=== PATIENT | female | born 1985 | race African-American/Black ===

== ENCOUNTER 2019-06-01 10:19 | Inpatient (IN) | payer SELFPAY ==
[~2019-06-01] VITALS: Ht 154.9 cm; Wt 57.6 kg
--- NOTE | 2019-06-01 10:25 | NUR ---
ED Nurse Note: Patient came via ambulance into ER with a c/o right hip pain x yesterday. Patient states that she fell when playing basketball yesterday and she fell again this morning. Pt stated that she went to [place] yesterday and said she had an xray done. Patient is AOx4, on room air with no signs of respiratory or cardiac distress noted. Pt states a pain score of 10/10. Leg color even and distributed. No bone protrusion noted. palpation of extremity pulses strong and even bilaterally.
--- NOTE | 2019-06-01 10:45 | NUR ---
ED Nurse Note: ERMD at bedside. placed patient in gown and on cardiac monitors.
[2019-06-01 10:56] VITALS: BP 108/78
[2019-06-01 11:35] LABS: APPEARANCE,URINE SLIGHTLY CLOUDY; BILIRUBIN, URINE NEGATIVE (NEGATIVE); COLOR,URINE PALE YELLOW; GLUCOSE, URINE (UA) NEGATIVE (NEGATIVE); KETONES,URINE NEGATIVE (NEGATIVE); LEUKOCYTE ESTERASE ,URINE 3+ (NEGATIVE); NITRITE,URINE NEGATIVE (NEGATIVE); PH,URINE 6 (4.5-8.0); PROTEIN,URINE NEGATIVE (NEGATIVE); UROBILINOGEN,URINE NORMAL MG/DL (0.0-1.0)
--- NOTE | 2019-06-01 11:50 | NUR ---
ED Nurse Note: xray done at bedside
--- NOTE | 2019-06-01 12:15 | NUR ---
ED Nurse Note: patient requested food, Dr. Uribe notified, and received order to hold on until xray is resulted.
[2019-06-01] MEDS ORDERED: Morphine Sulfate 2mg/ml Inj(IV/IM USE ONLY) IVP ONE (12:30)
--- NOTE | 2019-06-01 12:35 | Diagnostic Imaging Report ---
EXAM: XR Bilateral Hips With Pelvis, 4 or more Views CLINICAL HISTORY: PAIN TECHNIQUE: 2 views of the right hip, 2 views of the left hip, and frontal view of the pelvis. COMPARISON: No relevant prior studies available. FINDINGS: Bones/joints: Mildly displaced right femoral neck fracture with mild angulation. No other fracture or dislocation identified. Pelvic and obturator rings appear intact. SI joints and symphysis pubis appear unremarkable. Soft tissues: Unremarkable. IMPRESSION: Mildly displaced right femoral neck fracture with mild angulation.
--- NOTE | 2019-06-01 13:34 | Emergency Room Report ---
History of Present Illness General Chief Complaint: Pain Source: Patient Present Illness HPI 34-year-old female status post fall 2 to 3 days ago. Patient was admitted to [place] last night for right hip fracture. She left AMA because she wanted her sister to be with her. Patient states she has been unable to ambulate all morning.Patient reports her right hip pain has been going on for 1 month in duration. Patient has no other complaints. Social history significant for every day smoking Patient has no past medical history and does not take any medications. Allergies: Coded Allergies: No Known Allergies (Unverified , 06/01/19) Patient History Last Menstrual Period: Unknown Now: No Nursing Documentation-[facility] Past Medical History: No Stated History Review of Systems Constitutional: Denies: chills, fever Respiratory: Denies: cough, shortness of breath Cardiovascular: Denies: chest pain, palpitations Gastrointestinal: Denies: diarrhea, vomiting Genitourinary: Denies: hematuria, pain Musculoskeletal: Reports: joint pain; Denies: joint swelling Skin: Denies: rash, lesions Neurological: Denies: headache, dizziness Physical Exam Vital Signs Date Time Temp Pulse Resp B/P (MAP) Pulse Ox O2 Delivery O2 Flow Rate FiO2 06/01/19 09:56 98.4 92 18 132/80 (97) 100 Room Air Sp02 EP Interpretation: reviewed General Appearance: well appearing, no apparent distress, non-toxic Head: normocephalic, atraumatic Eyes: bilateral eye normal inspection ENT: hearing grossly normal, EOM grossly intact, moist mucus membranes Neck: supple Respiratory: lungs clear, normal breath sounds, no respiratory distress, speaking full sentences Cardiovascular #1: regular rate, rhythm, normal capillary refill Cardiovascular #2: 2+ radial (R), 2+ radial (L), 2+ femoral (R), 2+ femoral (L) , 2+ dorsalis pedis (R) Gastrointestinal: soft, no mass, no organomegaly, non-distended Rectal: deferred Musculoskeletal: no lower extremity edema, other - Limited range of motion of right hip due to severe pain. No signs of deformity or skin changes. Neurologic: grossly normal Psychiatric: mood/affect normal Skin: warm/dry, normal turgor Medical Decision Making Diagnostic Impression: Primary Impression: Femoral fracture Additional Impression: Hip fracture ER Course Patient left AMA from hospital last night for right hip fracture. Reporting severe pain to right hip today. Will obtain x-rays and review. X-rays found to have right femoral neck fracture. Patient will likely need to be admitted for operative repair. Ordered preop labs and pain medication. 1333-patient's care discussed with Dr. Tucker who agreed to admission and likely operative repair. Recommended obtaining a CT hip. 1415 Patient to be admitted to medical team under Dr. Cortés Laboratory Tests Test 06/01/19 11:05 06/01/19 12:50 Urine Color Pale yellow Urine Appearance Slightly cloudy Urine pH 6 (4.5-8.0) Urine Specific [place] 1.015 (1.005-1.035) Urine Protein Negative (NEGATIVE) Urine Glucose (UA) Negative (NEGATIVE) Urine Ketones Negative (NEGATIVE) Urine Blood 1+ (NEGATIVE) H Urine Nitrite Negative (NEGATIVE) Urine Bilirubin Negative (NEGATIVE) Urine Urobilinogen Normal MG/DL (0.0-1.0) Urine Leukocyte Esterase 3+ (NEGATIVE) H Urine RBC 2-4 /HPF (0 - 2) H Urine WBC 20-30 /HPF (0 - 2) H Urine Squamous Epithelial Cells Many /LPF (NONE/OCC) H Urine Bacteria Moderate /HPF (NONE) H Urine HCG, Qualitative Negative (NEGATIVE) Urine Opiates Screen Negative (NEGATIVE) Urine Barbiturates Screen Negative (NEGATIVE) Phencyclidine (PCP) Screen Negative (NEGATIVE) Urine Amphetamines Screen Negative (NEGATIVE) Urine Benzodiazepines Screen Negative (NEGATIVE) Urine Cocaine Screen Negative (NEGATIVE) Urine Marijuana (THC) Screen Positive (NEGATIVE) H White Blood Count 9.5 K/UL (4.8-10.8) Red Blood Count 3.56 M/UL (4.20-5.40) L Hemoglobin 10.1 G/DL (12.0-16.0) L Hematocrit 31.1 % (37.0-47.0) L Mean Corpuscular Volume 87 FL (80-99) Mean Corpuscular Hemoglobin 28.3 PG (27.0-31.0) Mean Corpuscular Hemoglobin Concent 32.4 G/DL (32.0-36.0) Red Cell Distribution Width 13.2 % (11.6-14.8) Platelet Count 404 K/UL (150-450) Mean Platelet Volume 5.1 FL (6.5-10.1) L Neutrophils (%) (Auto) 59.2 % (45.0-75.0) Lymphocytes (%) (Auto) 27.1 % (20.0-45.0) Monocytes (%) (Auto) 5.0 % (1.0-10.0) Eosinophils (%) (Auto) 6.6 % (0.0-3.0) H Basophils (%) (Auto) 2.1 % (0.0-2.0) H Sodium Level 139 MMOL/L (136-145) Potassium Level 3.9 MMOL/L (3.5-5.1) Chloride Level 105 MMOL/L (98-107) Carbon Dioxide Level 31 MMOL/L (21-32) Anion Gap 3 mmol/L (5-15) L Blood Urea Nitrogen 12 mg/dL (7-18) Creatinine 0.6 MG/DL (0.55-1.30) Estimate Glomerular Filtration Rate > 60 mL/min (>60) Glucose Level 77 MG/DL (74-106) Calcium Level 8.9 MG/DL (8.5-10.1) Total Bilirubin 0.3 MG/DL (0.2-1.0) Aspartate Amino Transferase (AST) 28 U/L (15-37) Alanine Aminotransferase (ALT) 26 U/L (12-78) Alkaline Phosphatase 52 U/L (46-116) Total Protein 6.0 G/DL (6.4-8.2) L Albumin 2.9 G/DL (3.4-5.0) L Globulin 3.1 g/dL Albumin/Globulin Ratio 0.9 (1.0-2.7) L Lab Results Impression Mild anemia noted on labs UDS positive for marijuana EKG Diagnostic Results EKG Time: 12:34 EP Interpretation: Normal sinus rhythm rate of 80 ST Segments: no acute changes Other X-Ray Diagnostic Results Other X-Ray Diagnostic Results : X-Ray ordered: Right HIP Indication: Pain Impression: Other - femoral neck fracture with mild angulation Electronically Signed by: Jojo Last Vital Signs Date Time Temp Pulse Resp B/P (MAP) Pulse Ox O2 Delivery O2 Flow Rate FiO2 06/01/19 10:56 98.4 84 23 108/78 100 Room Air Disposition: ADMITTED INPATIENT Condition: Serious Referrals: NOT CHOSEN IPA/,REFERRING (PCP) Sanchez Uribe M.D. Jun 01, 2019 13:34
[2019-06-01 13:45] LABS: BASOPHILS % (AUTO) 2.1 % (0.0-2.0); EOSINOPHILS % (AUTO) 6.6 % (0.0-3.0); HEMATOCRIT 31.1 % (37.0-47.0); HEMOGLOBIN 10.1 G/DL (12.0-16.0); LYMPHOCYTES % (AUTO) 27.1 % (20.0-45.0); MEAN CORPUSCULAR VOLUME 87 FL (80-99); NEUTROPHILS % (AUTO) 59.2 % (45.0-75.0); PLATELET COUNT 404 K/UL (150-450); RED BLOOD COUNT 3.56 M/UL (4.20-5.40); RED CELL DISTRIBUTION WIDTH 13.2 % (11.6-14.8); WHITE BLOOD COUNT 9.5 K/UL (4.8-10.8)
--- NOTE | 2019-06-01 13:46 | NUR ---
ED Nurse Note: patient taken to [facility] via [place]
--- NOTE | 2019-06-01 14:06 | NUR ---
ED Nurse Note: patient taken back from CT scan. belongings list done.
[2019-06-01 14:11] LABS: ANION GAP 3 mmol/L (5-15); BLOOD UREA NITROGEN 12 mg/dL (7-18); CALCIUM 8.9 MG/DL (8.5-10.1); CARBON DIOXIDE 31 MMOL/L (21-32); CHLORIDE 105 MMOL/L (98-107); CREATININE 0.6 MG/DL (0.55-1.30); POTASSIUM 3.9 MMOL/L (3.5-5.1); SODIUM 139 MMOL/L (136-145)
[2019-06-01] MEDS ORDERED: NKM (14:15)
[2019-06-01 14:16] LABS: ALANINE AMINOTRANSFERASE 26 U/L (12-78); ALBUMIN 2.9 G/DL (3.4-5.0); ALBUMIN/GLOBULIN RATIO 0.9 (1.0-2.7); ALKALINE PHOSPHATASE 52 U/L (46-116); ASPARTATE AMINO TRANSFERASE 28 U/L (15-37); BILIRUBIN,TOTAL 0.3 MG/DL (0.2-1.0)
--- NOTE | 2019-06-01 14:17 | NUR ---
ED Nurse Note: Called nurse JOANA Pompa for report of transfer for continuity of care.
--- NOTE | 2019-06-01 14:30 | NUR ---
ED Nurse Note: Pt transfered to Med-Surg. Patient aox4, on room air, and stable vital signs. Patient pain score is 7/10. Endorsed to JOANA Pompa for continuity of care. Belongings list given to JOANA Pompa and reviewed with Peña and patient.
--- NOTE | 2019-06-01 14:45 | NUR ---
NURSE NOTES: Patient was admitted from ED via gurney. AAO x 4. Room air. c/o of pain on her R hip. IV on RAC 20g intact and patent, with saline lock. Skin intact. Orientation on the unit given. Paged for admission orders and awaiting. Belongings were accounted. Side rails x 2. Bed in the lowest and locked. Call light within reach. Will continue to monitor
--- NOTE | 2019-06-01 15:10 | Diagnostic Imaging Report ---
EXAM: CT Right Lower Extremity Without Intravenous Contrast, Hip CLINICAL HISTORY: FALL TECHNIQUE: Axial computed tomography images of the right hip without intravenous contrast. Sagittal and coronal reformatted images were created and reviewed. CTDI is 24.20 mGy and DLP is 831.10 mGy-cm. One or more of the following dose reduction techniques were used: automated exposure control, adjustment of the mA and/or kV according to patient size, use of iterative reconstruction technique. COMPARISON: X-rays of the hips and pelvis dated 06/01/19 FINDINGS: Bones/joints: Mildly impacted transcervical right hip fracture. No other fracture or dislocation seen. The pelvic and obturator rings are intact. SI joints and symphysis pubis appear within normal limits. Soft tissues: Unremarkable. IMPRESSION: Mildly impacted transcervical right hip fracture.
[2019-06-01] MEDS ORDERED: D5 1/2NS 1,000 ML IV SCH (15:45)
[2019-06-01 16:00] VITALS: BP 113/55
[2019-06-01] MEDS: Morphine Sulfate 2mg/ml Inj(IV/IM USE ONLY) IVP PRN ×2 (16:58→21:22)
--- NOTE | 2019-06-01 17:53 | Cardiology Progress Note ---
Assessment/Plan Assessment/Plan The patient is seen and examined, full consult note is dictated. Objective Last 24 Hour Vital Signs Date Time Temp Pulse Resp B/P (MAP) Pulse Ox O2 Delivery O2 Flow Rate FiO2 06/01/19 17:28 98.1 06/01/19 16:00 98.1 90 20 113/55 (74) 100 06/01/19 14:58 Room Air 06/01/19 14:30 97.7 86 20 102/51 100 Room Air 06/01/19 10:56 98.4 84 23 108/78 100 Room Air 06/01/19 09:56 98.4 92 18 132/80 (97) 100 Room Air Laboratory Tests Test 06/01/19 11:05 06/01/19 12:50 Urine Color Pale yellow Urine Appearance Slightly cloudy Urine pH 6 (4.5-8.0) Urine Specific [place] 1.015 (1.005-1.035) Urine Protein Negative (NEGATIVE) Urine Glucose (UA) Negative (NEGATIVE) Urine Ketones Negative (NEGATIVE) Urine Blood 1+ (NEGATIVE) H Urine Nitrite Negative (NEGATIVE) Urine Bilirubin Negative (NEGATIVE) Urine Urobilinogen Normal MG/DL (0.0-1.0) Urine Leukocyte Esterase 3+ (NEGATIVE) H Urine RBC 2-4 /HPF (0 - 2) H Urine WBC 20-30 /HPF (0 - 2) H Urine Squamous Epithelial Cells Many /LPF (NONE/OCC) H Urine Bacteria Moderate /HPF (NONE) H Urine HCG, Qualitative Negative (NEGATIVE) Urine Opiates Screen Negative (NEGATIVE) Urine Barbiturates Screen Negative (NEGATIVE) Phencyclidine (PCP) Screen Negative (NEGATIVE) Urine Amphetamines Screen Negative (NEGATIVE) Urine Benzodiazepines Screen Negative (NEGATIVE) Urine Cocaine Screen Negative (NEGATIVE) Urine Marijuana (THC) Screen Positive (NEGATIVE) H White Blood Count 9.5 K/UL (4.8-10.8) Red Blood Count 3.56 M/UL (4.20-5.40) L Hemoglobin 10.1 G/DL (12.0-16.0) L Hematocrit 31.1 % (37.0-47.0) L Mean Corpuscular Volume 87 FL (80-99) Mean Corpuscular Hemoglobin 28.3 PG (27.0-31.0) Mean Corpuscular Hemoglobin Concent 32.4 G/DL (32.0-36.0) Red Cell Distribution Width 13.2 % (11.6-14.8) Platelet Count 404 K/UL (150-450) Mean Platelet Volume 5.1 FL (6.5-10.1) L Neutrophils (%) (Auto) 59.2 % (45.0-75.0) Lymphocytes (%) (Auto) 27.1 % (20.0-45.0) Monocytes (%) (Auto) 5.0 % (1.0-10.0) Eosinophils (%) (Auto) 6.6 % (0.0-3.0) H Basophils (%) (Auto) 2.1 % (0.0-2.0) H Sodium Level 139 MMOL/L (136-145) Potassium Level 3.9 MMOL/L (3.5-5.1) Chloride Level 105 MMOL/L (98-107) Carbon Dioxide Level 31 MMOL/L (21-32) Anion Gap 3 mmol/L (5-15) L Blood Urea Nitrogen 12 mg/dL (7-18) Creatinine 0.6 MG/DL (0.55-1.30) Estimat Glomerular Filtration Rate > 60 mL/min (>60) Glucose Level 77 MG/DL (74-106) Calcium Level 8.9 MG/DL (8.5-10.1) Total Bilirubin 0.3 MG/DL (0.2-1.0) Aspartate Amino Transf (AST/SGOT) 28 U/L (15-37) Alanine Aminotransferase (ALT/SGPT) 26 U/L (12-78) Alkaline Phosphatase 52 U/L (46-116) Total Protein 6.0 G/DL (6.4-8.2) L Albumin 2.9 G/DL (3.4-5.0) L Globulin 3.1 g/dL Albumin/Globulin Ratio 0.9 (1.0-2.7) L Orlando Dutton MD Jun 01, 2019 17:53
--- NOTE | 2019-06-01 18:50 | NUR ---
NURSE NOTES: Paged dr. Mccullough for orders, awaiting for return call
--- NOTE | 2019-06-01 19:15 | NUR ---
NURSE NOTES: Pt in bed asleep, call light within reach, able to make needs known, will continue to monitor, waiting for orders from Dr. Marquez.
--- NOTE | 2019-06-01 19:16 | NUR ---
HAND-OFF: Report given to JOANA Bajwa.
--- NOTE | 2019-06-01 20:00 | NUR ---
NURSE NOTES: Left message for Dr. Marquez for orders, waiting direct support professional caregiver back.
--- NOTE | 2019-06-01 23:30 | NUR ---
HAND-OFF: Report given to JOANA Key.
--- NOTE | 2019-06-02 01:30 | Consultation ---
DATE OF CONSULTATION: 06/01/2019 CARDIOLOGY CONSULTATION CONSULTING PHYSICIAN: Orlando Dutton M.D. REFERRING PHYSICIAN: Wilver Cortés D.O. REASON FOR CONSULTATION: Preoperative cardiac assessment for noncardiac surgery. HISTORY OF PRESENT ILLNESS: The patient is a very unfortunate 34-year-old female, who presents to the hospital status post fall that occurred about two or three days ago. Initially, she was admitted to [place], however she left AMA from the hospital. She states that she has been unable to ambulate due to right hip pain. At the time of arrival to this hospital, she did not have any chest pain, any shortness of breath. Prior to this event, she was physically active and did not have any cardiovascular symptoms with her usual activities. Her vital signs at the time of arrival to this hospital includes blood pressure 130/80 mmHg and pulse of 92. PAST MEDICAL HISTORY: None. MEDICATIONS: None. REVIEW OF SYSTEMS: A 12-system review done essentially negative except what was mentioned in the history of present illness including right hip pain and inability to bear weight. PAST SURGICAL HISTORY: None. ALLERGIES: No known drug allergies. FAMILY HISTORY: No premature coronary artery disease in the first-degree relatives. PHYSICAL EXAMINATION: VITAL SIGNS: Blood pressure is 132/80, pulse of 92, respirations 18, temperature 98.4 degree Fahrenheit, and O2 saturation 100% on room air. GENERAL: This is a very unfortunate 34-year-old lady. Alert and awake. No apparent respiratory distress. HEENT: Atraumatic and normocephalic. Anicteric. Pupils are equal, round, and reactive to light and accommodation. Extraocular muscles intact. NECK: JVP less than 5 cm. No carotid bruits. Carotid upstrokes 2+ bilaterally. CARDIOVASCULAR: Normal S1, S2. Regular rate and rhythm. No murmurs, gallops, or rubs. LUNGS: Clear to auscultation bilaterally. ABDOMEN: Soft, nontender, and nondistended. No hepatosplenomegaly. Positive bowel sounds. EXTREMITIES: No evidence of edema, clubbing, or cyanosis. LABORATORY FINDINGS: WBC 9.5 hemoglobin 10.1, hematocrit 31.1, and platelet count is 404. Chemistry, sodium 139, potassium 3.9, chloride 105, bicarbonate 31, BUN 12, creatinine 0.6, glucose 77, and calcium is 8.9. Urine tox screen showed positive marijuana. ASSESSMENT AND PLAN: The patient is a very unfortunate 34-year-old female, who was seen in Cardiology consultation for preoperative cardiac assessment as she is undergoing right hip ORIF. The patient does not have any prior history of coronary artery disease, congestive heart failure, or cardiac arrhythmias. She is asymptomatic with her usual physical activities medications. She is the intermediate risk above orthopedic surgery with risk of coronary artery disease estimated to be less than 1%. I would like to thank, Dr. Cortés, for the courtesy of this consultation. Orlando Dutton M.D. DR: GREGOR JOB#: [id number] CC:
[2019-06-02] MEDS: Morphine Sulfate 2mg/ml Inj(IV/IM USE ONLY) IVP PRN ×2 (02:04→06:01)
[2019-06-02 04:00] VITALS: BP 111/71
--- NOTE | 2019-06-02 07:00 | NUR ---
NURSE NOTES: PATIENT ELOPED FROM HOSPITAL. WENT DOWN TO Addendum: 06/02/19 at 0819 by Yesi Ballesteros RN NURSE NOTES: PATIENT ELOPED FROM HOSPITAL. PATIENT IS VERBALLY ABUSIVE, INSISTED TO LEAVE UNIT TO SMOKE CIGARRETTES AND REFUSED TO HAVE STAFF FOLLOW HER. PATIENT REFUSED TO COME BACK UP TO ROOM. INFORMED NURSE BRANDING MACHINE TENDER LALO WARNER. PATIENT THEN LEFT WITH STRANGER [facility] WAS INFORMED, DEIDRE WAS CALLED. [employer] ARRIVED AT FACILITY. PROVIDED [employer] OFFICER JODY WITH PATIENT'S DESCRIPTION, PATIENT'S HOME ADDRESS, TIME THAT PATIENT ELOPED FROM HOSPITAL. AND DR. SPARKS WERE INFORMED.
[2019-06-02 07:32] LABS: EOSINOPHILS % (AUTO) 6.9 % (0.0-3.0); HEMATOCRIT 38.2 % (37.0-47.0); HEMOGLOBIN 12.4 G/DL (12.0-16.0); LYMPHOCYTES % (AUTO) 23.8 % (20.0-45.0); MEAN CORPUSCULAR VOLUME 89 FL (80-99); MONOCYTES % (AUTO) 5.9 % (1.0-10.0); NEUTROPHILS % (AUTO) 61.4 % (45.0-75.0); PLATELET COUNT 460 K/UL (150-450); RED BLOOD COUNT 4.32 M/UL (4.20-5.40); RED CELL DISTRIBUTION WIDTH 13.4 % (11.6-14.8); WHITE BLOOD COUNT 12.3 K/UL (4.8-10.8)
[2019-06-02 07:47] LABS: ANION GAP 9 mmol/L (5-15); BLOOD UREA NITROGEN 10 mg/dL (7-18); CARBON DIOXIDE 27 MMOL/L (21-32); CHLORIDE 105 MMOL/L (98-107); CREATININE 0.7 MG/DL (0.55-1.30); POTASSIUM 3.7 MMOL/L (3.5-5.1); SODIUM 140 MMOL/L (136-145)
[2019-06-02 08:05] LABS: INR 0.9 (0.9-1.1)
[2019-06-02] MEDS ORDERED: NKM (11:57)
--- NOTE | 2019-06-03 14:24 | Discharge Summary ---
Discharge Summary Discharge Summary _ DATE OF ADMISSION: 06/01/2019 DATE OF DISCHARGE: 06/02/2019 Patient eloped REASON FOR ADMISSION: 34 years old female, with no significant past medical history, status post fall few days ago, initially presented to [facility] for right hip fracture. Patient left AGAINST MEDICAL ADVICE, because she wanted her sister to be with her. Patient was unable to ambulate and presented to ED with complaint of the right hip pain, Upon evaluation vital signs were stable. Laboratory work-up revealed no leukocytosis, hemoglobin 10.1, hematocrit 31.1. Platelet count 404. Stable electrolytes and renal parameters. Glucose 77. Stable LFT. EKG revealed sinus rhythm, no acute ischemic changes. Urine toxicology screen was positive for marijuana. Urinalysis revealed +3 leukocyte esterase, pyuria and moderate bacteria. Pelvic x-ray revealed mildly displaced right femoral neck fracture with mild angulation. CT scan of the right hip revealed mildly impacted transcervical right hip fracture. Patient admitted to medical surgical floor for further management CONSULTANTS: work order sorting clerk Dr. Dutton HOSPITAL COURSE: Patient admitted to medical surgical floor. Pain management was addressed. Orthopedic surgery and cardiology consults were requested. Fusing Machine Operator consulted for preoperative cardiac assessment for noncardiac surgery. Patient had no family history as well as no prior history of coronary artery disease, congestive heart failure , cardiac arrhythmia. She is asymptomatic with her usual physical activities. Patient appeared to be at intermediate risk of further orthopedic surgery with risk of coronary artery disease estimated to be less than 1%. Surgery consult was pending. Patient eloped from the hospital . She went to smoke and refused to come back to the room. FINAL DIAGNOSES: Right hip fracture I have been assigned to dictate discharge summary for this account. I was not involved in the patient's management. Kamini Galo NP Jun 03, 2019 14:24
--- NOTE | 2019-06-06 12:52 | Cardiology Report ---
APPROVED REPORT EKG Measurement Heart [id number] TN [id number] Normal sinus rhythm Normal ECG
== END 2019-06-02 07:00 | disposition left against medical advice (07) | DRG 536 ==
LOC: EDBD 10:19 → EMR 12:27 → EDBEDREQ 13:44 → 4E 13:52
DX: S72.031A Displaced midcervical fracture of right femur, initial encounter for closed fracture (principal); W01.0XXA Fall on same level from slipping, tripping and stumbling without subsequent striking against object, initial encounter; Y93.9 Activity, unspecified; Y92.9 Unspecified place or not applicable; Y99.8 Other external cause status; F17.210 Nicotine dependence, cigarettes, uncomplicated; Z53.29 Procedure and treatment not carried out because of patient's decision for other reasons
CPT/HCPCS: 36415; 73521; 80048; 80053; 80307; 81003; 81025; 85025; 85610; 85730; 86850; 86900; 86901; 87086; 93005; 96361; 96374; 99285; J7030

== ENCOUNTER 2019-06-02 10:35 | Inpatient (IN) | payer SELFPAY ==
[~2019-06-02] VITALS: Ht 154.9 cm; Wt 56.7 kg
[~2019-06-02 10:35] MED LIST: NKM
[2019-06-02 10:50] VITALS: BP 97/65
--- NOTE | 2019-06-02 10:50 | NUR ---
ED Nurse Note: Patient arrived to ER via wheelchair with [employer]. Patient is here for pain in her right hip. Patient complains of a pain score of 10/10. Patient aaox4, on room air and vital signs are stable. No signs of respiratory distress noted. Patient's leg color is evenly distributed, and Pulses are palpable bilateraly. Blood specimens sent to the lab. Patient states she left the hospital this morning.
[2019-06-02] MEDS ORDERED: NKM (11:57)
--- NOTE | 2019-06-02 12:29 | Emergency Room Report ---
History of Present Illness General Chief Complaint: Pain Source: Patient, Medical Record Present Illness HPI 34-year-old female who left AGAINST MEDICAL ADVICE return to emergency room with continued hip pain status post fall several days ago. Patient was admitted to hospital pending operative repair of femoral neck fracture. Patient has no new complaints. Patient states she left because they were not taking care of her and she was covered in urine in her bed. Allergies: Coded Allergies: No Known Allergies (Unverified , 06/01/19) Patient History Last Menstrual Period: 05/21/19 Now: No Nursing Documentation-[facility] Past Medical History: No History, Except For Hx Cardiac Problems: No Hx Cancer: No Hx Gastrointestinal Problems: No Hx Neurological Problems: No Review of Systems Constitutional: Denies: chills, fever Respiratory: Denies: cough, shortness of breath Cardiovascular: Denies: chest pain, palpitations Gastrointestinal: Denies: diarrhea, vomiting Genitourinary: Denies: hematuria, pain Musculoskeletal: Reports: joint pain; Denies: joint swelling Skin: Denies: rash, lesions Neurological: Denies: headache, dizziness Physical Exam Vital Signs Date Time Temp Pulse Resp B/P (MAP) Pulse Ox O2 Delivery O2 Flow Rate FiO2 06/02/19 10:44 99.1 100 19 97/65 (76) 100 Room Air Sp02 EP Interpretation: reviewed General Appearance: well appearing, no apparent distress, non-toxic Head: normocephalic, atraumatic Eyes: bilateral eye normal inspection ENT: hearing grossly normal, EOM grossly intact, moist mucus membranes Neck: supple Respiratory: lungs clear, normal breath sounds, no respiratory distress, speaking full sentences Cardiovascular #1: regular rate, rhythm, normal capillary refill Cardiovascular #2: 2+ radial (R), 2+ radial (L), 2+ femoral (R), 2+ femoral (L) , 2+ dorsalis pedis (R) Gastrointestinal: soft, non-distended Rectal: deferred Musculoskeletal: other - Limited range of motion of the right hip given pain. Patient has full range of motion of feet, knee and left leg. No deformities, no overlying skin changes. Neurologic: alert, motor strength/tone normal - Unable to evaluate motor strength on right, sensory intact - Sensation intact in lower extremity, grossly normal Psychiatric: mood/affect normal Skin: warm/dry, normal turgor Medical Decision Making ER Course Persistent right hip pain status post fall several days ago and right femoral neck fracture. Differential includes repeat or new injury. Will repeat x-rays to evaluate for such. We will discuss case with admitting physician. Other X-Ray Diagnostic Results Other X-Ray Diagnostic Results : X-Ray ordered: right hip Indication: Pain PA Xray: Interpretation reviewed Interpretation: other - Fracture unchanged from yesterday Last Vital Signs Date Time Temp Pulse Resp B/P (MAP) Pulse Ox O2 Delivery O2 Flow Rate FiO2 06/02/19 10:50 99.1 80 19 97/65 100 Room Air Reevaluation Impression Case accepted by [place] Disposition: ADMITTED INPATIENT Condition: Serious Referrals: NOT CHOSEN IPA/,REFERRING (PCP) Sanchez Uribe M.D. Jun 02, 2019 12:29
[2019-06-02] MEDS ORDERED: Morphine Sulfate 4mg/ml Inj (IV USE ONLY) IVP ONE (14:45)
--- NOTE | 2019-06-02 15:00 | NUR ---
ED Nurse Note: Transfered patient to [facility] and endorsed patient care to JOANA Pompa for continuity of care. Patient belongings list reviewed with patient and JOANA Pompa. Patient is AOx4, on room air, and vital signs are stable.
--- NOTE | 2019-06-02 15:25 | NUR ---
NURSE NOTES: Patient is admitted from ED via gurney. Room air. No c/o of distress. IV on R FA 20g intact and patent, with saline lock. Skin intact. Belongings are accounted for. Crutches at the bedside. Friend at the bedside. Orientation on the unit given. Paged dr. Juarez for admission orders
--- NOTE | 2019-06-02 15:30 | NUR ---
NURSE NOTES: Patient asked for something to eat or drink. Explained to pt that 's order is needed and pt started yelling and said that she'll leave the hospital with the IV again.
[2019-06-02 16:00] VITALS: BP 99/48
[2019-06-02] MEDS: D5NS 1,000 ML IV SCH (18:20)
--- NOTE | 2019-06-02 19:06 | NUR ---
HAND-OFF: Report given to JOANA Bajwa.
--- NOTE | 2019-06-02 19:29 | NUR ---
NURSE NOTES: Pt received standing at bedside next to bedside commode, able to make needs known, call light within reach, no c/o pain, pt complaining that she wants to go outside for fresh air. Informed pt of new orders of no smoking or wt bearing on rt lower extremity, pt non compliant and got on the elevator anyway and went outside to smoke stating it was her last cigarette.
[2019-06-02] MEDS: Morphine Sulfate 4mg/ml Inj (IV USE ONLY) IVP PRN ×2 (19:54→23:56)
[2019-06-02 20:00] VITALS: BP 107/75
[2019-06-02] MEDS: Heparin 5000 units/ml inj SUBQ SCH (20:08)
--- NOTE | 2019-06-02 20:15 | History and Physical Report ---
DATE OF ADMISSION: 06/02/2019 CHIEF COMPLAINT: Right hip fracture. HISTORY OF PRESENT ILLNESS: The patient is a 34-year-old female with no past medical history. She injured her right hip approximately a month and a half ago while playing basketball. She states she has been unable to ambulate. This . She states she several doctors there. They prescribed crutches, but she has not improved. She presented to the emergency room where a CT scan of the hip showed a fracture of the right hip. She is now admitted for further evaluation and care. PAST MEDICAL HISTORY: None. PAST SURGICAL HISTORY: Includes a . CURRENT MEDICATIONS: None. FAMILY HISTORY: None. SOCIAL HISTORY: The patient smokes. No alcohol. No drugs. REVIEW OF SYSTEMS: Negative except for right hip pain. PHYSICAL EXAMINATION: VITAL SIGNS: Temperature 98 degrees, pulse 81, respirations 19, blood pressure 99/48. GENERAL: The patient is well developed, no apparent distress. HEART: Regular rate and rhythm. LUNGS: Clear. ABDOMEN: Soft, nontender, nondistended. EXTREMITIES: Without clubbing, cyanosis, or edema. LABORATORY DATA: White count 12, hemoglobin 12. Sodium 140, potassium 3.7, creatinine 0.7. UA showed 20 to 30 wbc's. ASSESSMENT: This is a 34-year-old female who presents with a right hip fracture after playing basketball a month and a half ago. She also appears to have UTI. PLAN: 1. IV antibiotic therapy. 2. Follow up cultures. 3. The patient is stable for surgery on Monday from a med standpoint. sAa Juarez M.D. DR: SHIVA JOB#: [id number] CC:
[2019-06-02] MEDS: Piperacillin/Tazobactam 3.375 GM in NS 110 ML IVPB SCH (22:05)
[2019-06-03] VITALS: BP 105/60
[2019-06-03] MEDS: Morphine Sulfate 4mg/ml Inj (IV USE ONLY) IVP PRN ×5 (04:00→20:48)
[2019-06-03] MEDS: D5NS 1,000 ML IV SCH ×2 (05:35→18:11)
[2019-06-03] MEDS: Piperacillin/Tazobactam 3.375 GM in NS 110 ML IVPB SCH ×3 (06:16→21:38)
--- NOTE | 2019-06-03 07:38 | NUR ---
HAND-OFF: Report given to JOANA Corrales.
[2019-06-03 08:00] VITALS: BP 101/85
--- NOTE | 2019-06-03 08:00 | NUR ---
NURSE NOTES: received patient seated in bed, with complaint of severe pain, given pain medication as ordered. Patient receives atb IV per LFA access, also receives D5NS @ 75cc/hr. Bed locked at the lowest position possible, call light within easy reach, siderails up x2. Will continue to monitor patient and follow up with the plan of care.
[2019-06-03] MEDS: Heparin 5000 units/ml inj SUBQ SCH ×2 (08:16→19:54)
--- NOTE | 2019-06-03 08:39 | General Progress Note ---
Assessment/Plan Problem List: (1) UTI (urinary tract infection) ICD Codes: N39.0 - Urinary tract infection, site not specified SNOMED: 40588926 (2) Hip fracture, right ICD Codes: S72.001A - Fracture of unspecified part of neck of right femur, initial encounter for closed fracture SNOMED: 629864922 Status: stable Assessment/Plan: cont abx pain rx stable for hip surgery Subjective ROS Limited/Unobtainable: No Constitutional: Reports: no symptoms HEENT: Reports: no symptoms Cardiovascular: Reports: no symptoms Respiratory: Reports: no symptoms Gastrointestinal/Abdominal: Reports: no symptoms Genitourinary: Reports: no symptoms Neurologic/Psychiatric: Reports: no symptoms Endocrine: Reports: no symptoms Hematologic/Lymphatic: Reports: no symptoms Allergies: Coded Allergies: No Known Allergies (Unverified , 06/01/19) All Systems: reviewed and negative except above Subjective right hip pain Objective Last 24 Hour Vital Signs Date Time Temp Pulse Resp B/P (MAP) Pulse Ox O2 Delivery O2 Flow Rate FiO2 06/03/19 00:00 98.7 90 18 105/60 (75) 99 06/02/19 21:00 Room Air 06/02/19 20:00 99.3 105 18 107/75 (86) 100 06/02/19 16:00 98.0 81 19 99/48 (65) 100 06/02/19 15:37 Room Air 06/02/19 15:00 99.7 86 18 98/61 100 Room Air 06/02/19 10:50 99.1 80 19 97/65 100 Room Air 06/02/19 10:44 99.1 100 19 97/65 (76) 100 Room Air Intake and Output 06/02/19 06/03/19 19:00 07:00 Intake Total 1215 ml 1297.5 ml Balance 1215 ml 1297.5 ml Intake Oral 15 ml 15 ml IV Total 82.5 ml Other 1200 ml 1200 ml # Voids 2 2 Height (Feet): 5 Height (Inches): 1.00 Weight (Pounds): 127 General Appearance: WD/WN, alert Neck: supple Cardiovascular: normal rate, regular rhythm Respiratory/Chest: chest wall non-tender, lungs clear, normal breath sounds Abdomen: normal bowel sounds, non tender, soft, no organomegaly Edema: no edema noted Arm (L), no edema noted Arm (R), no edema noted Leg (L), no edema noted Leg (R), no edema noted Pedal (L), no edema noted Pedal (R), no edema noted Generalized Asa Juarez MD Jun 03, 2019 08:39
--- NOTE | 2019-06-03 10:00 | NUR ---
NURSE NOTES: patient noted to be emotionally labile, and goes outside to walk in front of the hospital entrance "for fresh air". Security Jerzy follows patient. Nurse tried to convince her to go back to the floor, patient refuses, staying out for 30 minutes. Patient comes back to floor escorted by security.
--- NOTE | 2019-06-03 10:20 | Diagnostic Imaging Report ---
Indication: Pain, status post fall playing basketball Technique: One view of the pelvis Comparison: 06/01/[address] scan Findings: Again demonstrated is a comminuted fracture of the junction of the femoral neck and intertrochanteric region. This is distracted by about 1 cm, alignment unchanged from the previous exam. Impression: Right hip fracture, unchanged over one day
--- NOTE | 2019-06-03 10:37 | NUR ---
NURSE NOTES: Patient noted to be restless, impulsive, and emotionally labile. Patient not following commands. Wants to go outside for "fresh air" every [address] Juarez notified. New order received to consult Dr. Bland.
[2019-06-03] MEDS ORDERED: LORazepam 1mg tab ORAL PRN (10:40)
[2019-06-03 12:00] VITALS: BP 96/58
--- NOTE | 2019-06-03 14:19 | Anethesia Preoperative Eval ---
Anesthesia Pre-op PMH/ROS General Date of Evaluation: Jun 03, 2019 Time of Evaluation: 12:47 Anesthesiologist: Sweta ASA Score: ASA 2 Mallampati Score Class I : Soft palate, uvula, fauces, pillars visible Class II: Soft palate, uvula, fauces visible Class III: Soft palate, base of uvula visible Class IV: Only hard plate visible Mallampati Classification: Class I Surgeon: Sadia Diagnosis: R Hip Fx Surgical Procedure: ORIF R Femoral Neck Anesthesia History: none Social History: drug use Family History: no anesthesia problems Allergies: Coded Allergies: No Known Allergies (Unverified , 06/01/19) Medications: see eMAR Patient NPO?: Yes Anesthesia Pre-op Phys. Exam Physician Exam Last Vital Signs Date Time Temp Pulse Resp B/P (MAP) Pulse Ox O2 Delivery O2 Flow Rate FiO2 06/03/19 12:54 98.7 06/03/19 09:00 Room Air 06/03/19 08:00 77 18 101/85 (90) 100 Constitutional: NAD Neurologic: CN 2-12 intact Cardiovascular: RRR Respiratory: CTA Gastrointestinal: S/NT/ND Airway Exam Mallampati Score: Class I MO: full ROM: full Teeth: intact Anesthesia Pre-op A/P Risk Assessment & Plan Assessment: ASA 2 Plan: GA, LPB Status Change Before Surgery: No Pre-Antibiotics Drug: Dwain Alarcon MD Jun 03, 2019 14:19
--- NOTE | 2019-06-03 15:36 | Consultation ---
Consult Note Consult Note Patient seen and evaluated. Right Basocervical impacted varus femoral neck fracture with displacement. This is at least 4-5 days old and possibly longer. Very high risk of AVN of the right femoral heal. Considering the young age of the patient, will proceed with ORIF. May not be able to get anatomical reduction due to weight bearing on the fracture and bone erosion. Fully discussed with the patient and she agrees. We will proceed at 12pm tomorrow. Isidro Marvin MD Jun 03, 2019 15:36
[2019-06-03 16:00] VITALS: BP 99/53
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
--- NOTE | 2019-06-03 19:30 | NUR ---
HAND-OFF: Report given to JOANA Roberto.
[2019-06-03 20:00] VITALS: BP 112/79
--- NOTE | 2019-06-03 21:00 | NUR ---
NURSE NOTES: Patient was downstairs in front of hospital during shift change, patient in room now, stable. NPO @ midnight confirmed with patient, patient verbalized understanding. Patient cannot make it to bedside commode and continuously pees in the bed, patient and linen cleaned promptly. IV access asymptomatic. Bed low and locked, patient wearing non slip socks. Will administer pain medication per MD order.
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
[2019-06-04] VITALS (13 sets, daily range): BP systolic 94–132; BP diastolic 51–69
--- NOTE | 2019-06-04 02:20 | NUR ---
NURSE NOTES: Patient able to walk downstairs on crutches with supervision. Came back up to unit after 10 mins.
[2019-06-04] MEDS: Morphine Sulfate 4mg/ml Inj (IV USE ONLY) IVP PRN ×3 (02:43→10:44)
--- NOTE | 2019-06-04 03:10 | NUR ---
NURSE NOTES: RECEIVED PT FROM JOANA MELENDEZ. PT IS ASLEEP, AROUSABLE TO VOICE, AAOX4, ON ROOM AIR, NO ACUTE DISTRESS NOTED. CRUTCHES NOTED AT BEDSIDE. IV ON RIGHT WRIST 22G IS INTACT AND PATENT. BED IS LOCKED AND LOW, BED ALARMS ACTIVE, SIDE RAILS UP X2 AND CALL LIGHT IS WITHIN REACH. WILL CONTINUE TO MONITOR.
[2019-06-04] MEDS: Piperacillin/Tazobactam 3.375 GM in NS 110 ML IVPB SCH ×4 (05:25→22:00)
--- NOTE | 2019-06-04 07:54 | NUR ---
HAND-OFF: Report given to JOANA Hankins and JOANA Donahue. Patient is in stable condition. Endorsed plan of care.
--- NOTE | 2019-06-04 07:55 | NUR ---
NURSE NOTES: Report received from Yesi RN. Patient sitting in semi fowlers position in bed. Patient does not report pain at this time. Educated patient that patient will be going down for ORIF operation at noon today. Patient has been NPO since midnight, will continue to follow this diet until after procedure. IV patent and fluids running. No signs or erythema, edema, and patient does not report pain at IV site. Call light and personal belongings in reach. Will continue to follow plan of care.
[2019-06-04] MEDS: D5NS 1,000 ML IV SCH (08:15)
[2019-06-04] MEDS: Heparin 5000 units/ml inj SUBQ SCH ×2 (09:00→21:00)
--- NOTE | 2019-06-04 10:26 | Anethesia Preoperative Eval ---
Anesthesia Pre-op PMH/ROS General Date of Evaluation: Jun 04, 2019 Time of Evaluation: 10:22 Anesthesiologist: Naren ASA Score: ASA 2 Mallampati Score Class I : Soft palate, uvula, fauces, pillars visible Class II: Soft palate, uvula, fauces visible Class III: Soft palate, base of uvula visible Class IV: Only hard plate visible Mallampati Classification: Class II Surgeon: Sadia Diagnosis: R femoral neck Fx. Surgical Procedure: ORIF of R femoral neck Fx Anesthesia History: none Social History: current smoker Family History: no anesthesia problems Allergies: Coded Allergies: No Known Allergies (Unverified , 06/01/19) Medications: see eMAR Patient NPO?: Yes NPO Date: Jun 04, 2019 NPO Time: 0000 Past Medical History Cardiovascular: Denies: HTN, CAD, CT, valve dz, arrhythmia, other Pulmonary: Denies: asthma, COPD, BROWN, other Gastrointestinal/Genitourinary: Reports: GERD - mild; Denies: CRI, ESRD, other Neurologic/Psychiatric: Denies: dementia, CVA, depression/anxiety, TIA, other Endocrine: Denies: DM, hypothyroidism, steroids, other HEENT: Denies: cataract (L), cataract (R), glaucoma, P[place]ON (L), [place]ON (R), other Hematology/Immune: Denies: anemia, DVT, bleeding disorder, other Musculoskeletal/Integumentary: Denies: OA, RA, DJD, DDD, edema, other PMH Narrative: as above PSxH Narrative: with GA, I&D of breast abscess Anesthesia Pre-op Phys. Exam Physician Exam Last Vital Signs Date Time Temp Pulse Resp B/P (MAP) Pulse Ox O2 Delivery O2 Flow Rate FiO2 06/04/19 03:13 97.6 06/04/19 00:00 88 18 98/53 (68) 95 06/03/19 22:07 Room Air Constitutional: NAD Neurologic: CN 2-12 intact Cardiovascular: RRR, no M/R/G Respiratory: CTA Gastrointestinal: S/NT/ND Airway Exam Mallampati Score: Class II Neck: flexible ROM: full Teeth: intact Dentures: no upper, no lower Anesthesia Pre-op A/P Labs see chart Risk Assessment & Plan Assessment: ASA 2 Plan: SAB vs GA Status Change Before Surgery: No Pre-Antibiotics Drug: as scheduled Jesus Sneed MD Jun 04, 2019 10:26
--- NOTE | 2019-06-04 10:45 | NUR ---
NURSE NOTES: Surgery called to unit, and made RN aware that they will be coming to get patient at approximately 1100. Pre operative checklist completed with patient. IV still patent, no erythema, edema, and flushes without pain or irritation. Will continue to monitor and follow plan of care until pick pack worker.
[2019-06-04] MEDS ORDERED: fentaNYL 100 mcg/2 mL IV ONE (11:24)
[2019-06-04] MEDS ORDERED: Lidocaine 1% MPF 10mg/ml 5ml ONE (11:24)
[2019-06-04] MEDS ORDERED: Midazolam 2mg/2ml Inj ONE (11:24)
[2019-06-04] MEDS ORDERED: Propofol 200mg/20ml IV ONE (11:24)
[2019-06-04] MEDS ORDERED: Duramorph PF 5mg/10ml amp ONE (11:40)
[2019-06-04] MEDS ORDERED: Bupivacaine 0.5% Inj 30 ml vial INJ ONE (11:44)
[2019-06-04] MEDS ORDERED: Bupivacaine w/Epi 0.5% 30ml Vial INJ ONE (11:48)
[2019-06-04] MEDS ORDERED: Bacitracin 50000 Units Vial ONE (11:48)
--- NOTE | 2019-06-04 11:50 | NUR ---
NURSE NOTES: Zachary, surgical technology instructor came for patient. Patient awake, alert, and oriented to person time and place. Pre operative documentation completed. Surgical consent in chart. Chart given to Zachary. Patient does not have clothing or jewelry.Name band on wrist. Patient disconnected from IV fluids, IV flushed, patent, and patient did not complain of pain or discomfort. Patient remained on NPO diet. Assisted to bed side commode and patient voided before leaving.
--- NOTE | 2019-06-04 12:28 | Pre-Procedure Note/Attestation ---
Pre-Procedure Note/Attestation Complete Prior to Procedure Planned Procedure: right Procedure Narrative: right femur ORIF Indications for Procedure Pre-Operative Diagnosis: Rt femur fracture Attestation I attest that I discussed the nature of the procedure; its benefits; risks and complications; and alternatives (and the risks and benefits of such alternatives ), prior to the procedure, with the patient (or the patient's legal agency sales representative). I attest that, if there was a reasonable possibility of needing a blood transfusion, the patient (or the patient's legal agency sales representative) was given the [facility] standardized written summary, pursuant to the Martin Rolan Blood Safety Act ([place] Health and Safety Code # 1645, as amended). I attest that I re-evaluated the patient just prior to the surgery and that there has been no change in the patient's H&P, except as documented below: NONE Isidro Mccullough MD Jun 04, 2019 12:28
--- NOTE | 2019-06-04 12:28 | NUR ---
CASE MANAGEMENT:REVIEW 34 YR OLD FEMALE PRESENTED TO ER ([facility]) CC: PAIN AFTER PLAYING BASKETBALL SI: RT HIP FRACTURE 99.2 100 19 97/65 100% ON RA IS: IV MORPHINE IVF@75/HR : TO MED/SURG UNIT 06/04/19 SI: RT HIP FRACTURE 98.2 88 18 115/59 95% ON RA IS: TO SURGERY FOR ORIF IV ZOSYN Q8HRS HEPARIN SQ Q12 IV MORPHINE Q4HRS PRN IVF@75/HR : MED/SURG STATUS DCP: HOME UPON DISCHARGE
[2019-06-04] MEDS ORDERED: HYDROcodone/Acetamin 7.5/325 tab ORAL PRN (12:30)
[2019-06-04] MEDS ORDERED: HYDROmorphone 1mg/ml Carpuject SUBQ PRN (12:30)
[2019-06-04] MEDS ORDERED: Milk of Magnesia 30ml Ud ORAL PRN (12:30)
[2019-06-04] MEDS ORDERED: Sodium Chloride 10ml vial INJ ONE (13:06)
[2019-06-04] MEDS ORDERED: ePHEDrine 50mg/ml Inj ONE (13:06)
[2019-06-04] MEDS ORDERED: LR 1000ml 1,000 ML IVLG SCH (13:22)
[2019-06-04] MEDS ORDERED: Ketorolac 30mg Inj IV PRN (13:30)
[2019-06-04] MEDS ORDERED: Meperidine 50mg/ml Inj(FOR RIGORS ONLY) IVP PRN (13:30)
[2019-06-04] MEDS ORDERED: Metoclopramide 10mg/2ml Inj IVP PRN (13:30)
[2019-06-04] MEDS ORDERED: DiphenhydrAMINE 50mg/ml Inj IVP PRN (13:30)
[2019-06-04] MEDS ORDERED: ceFAZolin sod 2 GM in D5W 110 ML IV SCH (14:00)
--- NOTE | 2019-06-04 14:22 | Brief Operative Note ---
Immediate Post Operative Note Operative Note Chief Complaint: rt hip pain Pre-op Diagnosis: rt femur fracture Procedure: rt hip ORIF Post-op Diagnosis: same as pre-op Findings: consistent w/pre-op dx studies Surgeon: md ines Counter Supply Worker: rina linder Anesthesiologist: md leesa Anesthesia: general Specimen: none Complications: none Condition: stable Fluids: ns Estimated Blood Loss: minimal Drains: none Implant(s) used?: Yes - Glo Mcfarland Jun 04, 2019 14:22
--- NOTE | 2019-06-04 14:43 | Immediate Post-Op Evaluation ---
Immediate Post-Op Evalulation Immediate Post-Op Evalulation Procedure: ORIF of R femoral neck Fx. Date of Evaluation: Jun 04, 2019 Time of Evaluation: 14:41 IV Fluids: 1200 Blood Products: none Estimated Blood Loss: 100 Urinary Output: 200 Blood Pressure Systolic: 114 Blood Pressure Diastolic: 76 Pulse Rate: 84 Respiratory Rate: 20 O2 Sat by Pulse Oximetry: 98 Temperature (Fahrenheit): 97.4 Pain Score (1-10): 1 Nausea: No Vomiting: No Complications none Patient Status: awake, patent, none Hydration Status: adequate Jesus Sneed MD Jun 04, 2019 14:43
--- NOTE | 2019-06-04 15:48 | General Progress Note ---
Assessment/Plan Problem List: (1) UTI (urinary tract infection) ICD Codes: N39.0 - Urinary tract infection, site not specified SNOMED: 75088330 (2) Hip fracture, right ICD Codes: S72.001A - Fracture of unspecified part of neck of right femur, initial encounter for closed fracture SNOMED: 050897871 Status: stable Assessment/Plan: cont abx pain rx stable for hip surgery Subjective ROS Limited/Unobtainable: No Constitutional: Reports: malaise HEENT: Reports: no symptoms Cardiovascular: Reports: no symptoms Respiratory: Reports: no symptoms Gastrointestinal/Abdominal: Reports: no symptoms Genitourinary: Reports: no symptoms Neurologic/Psychiatric: Reports: no symptoms Endocrine: Reports: no symptoms Hematologic/Lymphatic: Reports: no symptoms Allergies: Coded Allergies: No Known Allergies (Unverified , 06/01/19) All Systems: reviewed and negative except above Subjective right hip pain Objective Last 24 Hour Vital Signs Date Time Temp Pulse Resp B/P (MAP) Pulse Ox O2 Delivery O2 Flow Rate FiO2 06/04/19 15:20 69 18 100/51 100 Room Air 06/04/19 15:05 81 16 96/59 100 Nasal Cannula 3 06/04/19 14:55 75 16 105/69 100 Nasal Cannula 3 06/04/19 14:45 78 16 110/63 100 Simple Mask 6 06/04/19 14:43 84 20 98 06/04/19 14:40 91 22 114/58 100 Simple Mask 6 06/04/19 14:36 97.4 102 24 106/54 100 Simple Mask 6 06/04/19 12:00 97.7 132/57 (82) 06/04/19 10:51 Room Air 06/04/19 09:00 Room Air 06/04/19 08:00 98.2 115/59 (77) 06/04/19 03:13 97.6 06/04/19 00:00 97.6 88 18 98/53 (68) 95 06/03/19 22:07 Room Air 06/03/19 20:00 98.2 95 16 112/79 (90) 95 06/03/19 16:00 98.7 82 16 99/53 (68) 95 Intake and Output 06/03/19 06/04/19 19:00 07:00 Intake Total 600 ml Balance 600 ml Intake Oral 600 ml # Voids 6 7 Height (Feet): 5 Height (Inches): 1.00 Weight (Pounds): 127 General Appearance: WD/WN, alert Cardiovascular: regular rhythm Respiratory/Chest: lungs clear Abdomen: normal bowel sounds, non tender, soft, no organomegaly Edema: no edema noted Arm (L), no edema noted Arm (R), no edema noted Leg (L), no edema noted Leg (R), no edema noted Pedal (L), no edema noted Pedal (R), no edema noted Generalized Asa Juarez MD Jun 04, 2019 15:48
--- NOTE | 2019-06-04 16:15 | NUR ---
NURSE NOTES: Patient returned to room accompanied by PACU nurse. Patient awake and oriented x 4. Sitting in semi fowlers position in the bed. Oxygen saturation at 100 % room air, blood pressure of 94/52, hear rate of 66 BPM, temperature of 97.8 orally, and respirations of 18 breaths per minute. Will continue to monitor vital signs. Assessed surgical dressing, dry and in tact. IV in right hand no longer patent. New IV placed in Left forearm, patent, no erythema, or edema. Normal Saline currently running. Will return patient to scheduled fluids per MD orders. Patient states that she is hungry, will start with clear liquids and advance diet as tolerated. Patient does not report pain at this time. Currently does not have sensation or movement below her right knee. Educated the patient the importance of not getting up without help. Patient communicated back and showed understanding of her mobility limitations and stated she will not get up without calling. Will continue to monitor patient and follow care plan.
--- NOTE | 2019-06-04 16:52 | NUR ---
NURSE NOTES: Patient communicated that she would like all phone calls to be directed to her room. Has requested that staff does not speak to family or friends calling to check on her due to personal problems. Will pass patients request to oncoming nurse.
--- NOTE | 2019-06-04 17:00 | Progress Note ---
DATE: 06/04/2019 SUBJECTIVE: The patient is awaiting surgery, calmer today, more redirectable, not getting out of the hospital, more cooperative. MENTAL STATUS EXAMINATION: Alert and oriented x4. Mood is anxious. Affect is constricted. Congruent with mood. Thought process is concrete. Thought content, no suicidal or homicidal ideations. ASSESSMENT: 1. Anxiety disorder. 2. Nicotine dependence. PLAN: 1. We will continue Ativan as needed. 2. Provide the patient reality orientation and supportive therapy. Nathan Bland M.D. DR: Shakira JOB#: [id number] CC:
--- NOTE | 2019-06-04 17:41 | Diagnostic Imaging Report ---
INDICATION: Pain, intraoperative TECHNIQUE: Intraoperative imaging Fluoroscopy time: 100.2 seconds Total dose: 0.44930 mGym2 Total number of images: 5 COMPARISON: 06/02/2019 FINDINGS: Intraoperative images demonstrate surgical repair of previously demonstrated left femoral fracture with compression screw and medullary brandi IMPRESSION: Intraoperative imaging, as described
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
--- NOTE | 2019-06-04 17:46 | NUR ---
NURSE NOTES: Patient requested to go outside to get fresh air. It was advised by JOANA Donahue that this was not medically safe due to the patient just returning from surgery. Patient insisted that she be allowed to go outside or she would leave AMA. mixing and dispensing supervisor contacted. mixing and dispensing supervisor came and spoke with patient. Order was received from primary MD to allow the patient to go outside in a wheel chair as long as staff from unit is with patient. mixing and dispensing supervisor spoke with [employer]'s, whom also approved this request of the patient, following the same protocol set by the primary MD. mixing and dispensing supervisor communicated the MD's orders to the patient, and instructed the patient that her request would be allowed at the availability of the staff. Patient understood. Patient taken outside in wheelchair by JOANA Donahue.
--- NOTE | 2019-06-04 17:50 | Diagnostic Imaging Report ---
Indication: Postoperative, status post right hip repair, pain Technique: One view of the pelvis Comparison: 06/02/2019 Findings: Interim surgical repair of previously demonstrated right proximal femoral fracture with medullary brandi and compression screw. Fragments and hardware appear well aligned. Retained air from the surgical exposure is seen within the soft tissues Impression: Postoperative right hip. No unusual features
--- NOTE | 2019-06-04 17:51 | Diagnostic Imaging Report ---
Indications: Status post repair, right hip fracture, pain Technique: Two views of the right femur Comparison: None Findings: Patient is status post repair of proximal femoral fracture with medullary brandi and compression screw. Retained air from the surgical exposure seen within the soft tissues. No new fractures. Impression: Postsurgical changes, as described. No unusual features
--- NOTE | 2019-06-04 18:00 | NUR ---
NURSE NOTES: Patient brought back to room via wheelchair. Assisted patient and transferred patient back to bed. Patient connected back to IV. Compression boots applied. Head of bed elevated. Patient reported no pain at this time and had no further request. Educated patient to call if she needed to get up. Call light and personal belongings within reach. Will continue to follow plan of care.
[2019-06-04] MEDS: Docusate 100mg cap ORAL SCH (18:24)
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
--- NOTE | 2019-06-04 19:27 | NUR ---
HAND-OFF: Report given to
--- NOTE | 2019-06-04 19:30 | NUR ---
NURSE NOTES: Received patient in no apparent distress. A&OX4. IV site patent and intact. Dressing noted on right hip, dry and intact. Pedal pulse present right foot, warm to touch, normal sensation present. Bed in lowest position. Call light within reach. Will continue to monitor.
--- NOTE | 2019-06-04 21:00 | NUR ---
NURSE NOTES: Heparin was hold due to post op day 0.
[2019-06-04] MEDS: D5 1/2NS w/KCl 20mEq 1,000 ML IV SCH (21:33)
[2019-06-04] MEDS: oxyCONTIN 10mg tab ORAL SCH (21:34)
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
--- NOTE | 2019-06-05 | NUR ---
NURSE NOTES: Patient still at the lobby with master deputy sheriff court security supervision. Nurse recommend go back to room but still refused.
--- NOTE | 2019-06-05 02:00 | NUR ---
NURSE NOTES: Patient still at the lobby with director of safety and security supervision. Nurse recommend go back to room but still refused.
--- NOTE | 2019-06-05 03:40 | NUR ---
NURSE NOTES: Patient still at the lobby with private security guard supervision. Nurse recommend go back to room but still refused.
--- NOTE | 2019-06-05 05:30 | NUR ---
NURSE NOTES: Patient came back to the room.
[2019-06-05] MEDS: Piperacillin/Tazobactam 3.375 GM in NS 110 ML IVPB SCH ×3 (05:42→15:38)
[2019-06-05] MEDS: HYDROcodone/Acetamin 5/325 tab ORAL PRN ×3 (05:43→19:39)
[2019-06-05 06:12] LABS: BASOPHILS % (AUTO) 1.2 % (0.0-2.0); EOSINOPHILS % (AUTO) 11.2 % (0.0-3.0); HEMATOCRIT 30.5 % (37.0-47.0); HEMOGLOBIN 10.6 G/DL (12.0-16.0); LYMPHOCYTES % (AUTO) 19.1 % (20.0-45.0); MEAN CORPUSCULAR VOLUME 84 FL (80-99); MONOCYTES % (AUTO) 7.3 % (1.0-10.0); NEUTROPHILS % (AUTO) 61.2 % (45.0-75.0); PLATELET COUNT 361 K/UL (150-450); RED BLOOD COUNT 3.64 M/UL (4.20-5.40); RED CELL DISTRIBUTION WIDTH 11.9 % (11.6-14.8); WHITE BLOOD COUNT 7.2 K/UL (4.8-10.8)
[2019-06-05 06:27] LABS: ANION GAP 9 mmol/L (5-15); BLOOD UREA NITROGEN 10 mg/dL (7-18); CALCIUM 8.8 MG/DL (8.5-10.1); CARBON DIOXIDE 26 MMOL/L (21-32); CHLORIDE 100 MMOL/L (98-107); CREATININE 0.6 MG/DL (0.55-1.30); POTASSIUM 3.3 MMOL/L (3.5-5.1); SODIUM 135 MMOL/L (136-145)
--- NOTE | 2019-06-05 07:20 | NUR ---
NURSE NOTES: Dr. Juarez came and assess the patient.
--- NOTE | 2019-06-05 07:30 | NUR ---
HAND-OFF: Report given to Sabas BERNARD.
--- NOTE | 2019-06-05 07:32 | NUR ---
NURSE NOTES: HANDOFF RECEIVED FROM JOANA BARGER. PATIENT RECEIVED RESTING IN BED, NO ACUTE SIGNS OF DISTRESS NOTED. PATIENT HAS LEFT HAND IV SITE RUNNING PRESCRIBED FLUIDS. BED IN THE LOW AND LOCKED POSITION WITH CALL LIGHT WITHIN REACH, WILL CONTINUE TO MONITOR.
--- NOTE | 2019-06-05 08:17 | 48 Hour Post Anesthesia Eval ---
Post Anesthesia Evaluation Procedure: ORIF of R femoral neck Fx. Date of Evaluation: Jun 05, 2019 Time of Evaluation: 06:08 Blood Pressure Systolic: 97 0: 59 Pulse Rate: 82 Respiratory Rate: 18 Temperature (Fahrenheit): 97.7 O2 Sat by Pulse Oximetry: 100 Airway: patent Nausea: No Vomiting: No Pain Intensity: 2 Hydration Status: adequate Cardiopulmonary Status: Stable Mental Status/LOC: patient returned to baseline Follow-up Care/Observations: 0 Post-Anesthesia Complications: 0 Follow-up care needed: N/A Dwain Sol MD Jun 05, 2019 08:17
[2019-06-05] MEDS: celeBREX 200mg Cap **SURGERY PATIENTS ONLY ORAL SCH (08:49)
[2019-06-05] MEDS: oxyCONTIN 10mg tab ORAL SCH ×2 (08:50→21:40)
[2019-06-05] MEDS: Heparin 5000 units/ml inj SUBQ SCH ×2 (08:54→21:45)
[2019-06-05] MEDS: Docusate 100mg cap ORAL SCH ×3 (08:56→17:39)
--- NOTE | 2019-06-05 09:11 | General Progress Note ---
Assessment/Plan Problem List: (1) UTI (urinary tract infection) ICD Codes: N39.0 - Urinary tract infection, site not specified SNOMED: 40204582 (2) Hip fracture, right ICD Codes: S72.001A - Fracture of unspecified part of neck of right femur, initial encounter for closed fracture SNOMED: 003883733 Status: stable Assessment/Plan: cont abx pain rx stable s/p hip surgery pt/ot Subjective ROS Limited/Unobtainable: No Constitutional: Reports: malaise, weakness HEENT: Reports: no symptoms Cardiovascular: Reports: no symptoms Respiratory: Reports: no symptoms Gastrointestinal/Abdominal: Reports: no symptoms Genitourinary: Reports: no symptoms Neurologic/Psychiatric: Reports: no symptoms Endocrine: Reports: no symptoms Hematologic/Lymphatic: Reports: no symptoms Allergies: Coded Allergies: No Known Allergies (Unverified , 06/01/19) All Systems: reviewed and negative except above Subjective s/p right hip orif Objective Last 24 Hour Vital Signs Date Time Temp Pulse Resp B/P (MAP) Pulse Ox O2 Delivery O2 Flow Rate FiO2 06/05/19 08:17 82 18 100 06/04/19 21:00 Room Air 06/04/19 20:00 97.7 82 18 95/59 (71) 100 06/04/19 16:00 97.1 06/04/19 16:00 97.3 66 18 94/52 (66) 100 06/04/19 15:50 97.1 63 24 105/53 100 Room Air 06/04/19 15:35 60 22 95/56 100 Room Air 06/04/19 15:20 69 18 100/51 100 Room Air 06/04/19 15:05 81 16 96/59 100 Nasal Cannula 3 06/04/19 14:55 75 16 105/69 100 Nasal Cannula 3 06/04/19 14:45 78 16 110/63 100 Simple Mask 6 06/04/19 14:43 84 20 98 06/04/19 14:40 91 22 114/58 100 Simple Mask 6 06/04/19 14:36 97.4 102 24 106/54 100 Simple Mask 6 06/04/19 12:00 97.7 132/57 (82) 06/04/19 10:51 Room Air Intake and Output 06/04/19 06/05/19 18:59 06:59 Intake Total 1955.0 ml 507.5 ml Output Total 300 ml Balance 1655.0 ml 507.5 ml Intake Oral 500 ml 480 ml IV Total 1455.0 ml 27.5 ml Output Urine Total 200 ml Estimated Blood Loss 100 ml # Voids 3 2 Laboratory Tests 06/05/19 05:40: White Blood Count 7.2, Red Blood Count 3.64L, Hemoglobin 10.6L, Hematocrit 30.5L , Mean Corpuscular Volume 84, Mean Corpuscular Hemoglobin 29.2, Mean Corpuscular Hemoglobin Concent 34.8, Red Cell Distribution Width 11.9, Platelet Count 361, Mean Platelet Volume 5.2L, Neutrophils (%) (Auto) 61.2, Lymphocytes ( %) (Auto) 19.1L, Monocytes (%) (Auto) 7.3, Eosinophils (%) (Auto) 11.2H, Basophils (%) (Auto) 1.2, Sodium Level 135L, Potassium Level 3.3L, Chloride Level 100, Carbon Dioxide Level 26, Anion Gap 9, Blood Urea Nitrogen 10, Creatinine 0.6, Estimat Glomerular Filtration Rate > 60, Glucose Level 114H, Calcium Level 8.8 Height (Feet): 5 Height (Inches): 1.00 Weight (Pounds): 125 General Appearance: WD/WN, alert Cardiovascular: regular rhythm Respiratory/Chest: lungs clear Abdomen: soft Edema: no edema noted Arm (L), no edema noted Arm (R), no edema noted Leg (L), no edema noted Leg (R), no edema noted Pedal (L), no edema noted Pedal (R), no edema noted Generalized Asa Juarez MD Jun 05, 2019 09:11
[2019-06-05] MEDS: D5 1/2NS w/KCl 20mEq 1,000 ML IV SCH (09:20)
--- NOTE | 2019-06-05 11:16 | NUR ---
NURSE NOTES: received report from JOANA Obregon. patient in bed. sleeping. no respiratory distress noted. no facial grimacing noted. IV on LH 20 running D51/2ns 20meq @75. bed in the lowest position and locked. call light within reach. will continue to provide plan of care.
--- NOTE | 2019-06-05 11:19 | NUR ---
HAND-OFF: Report given to JOANA MARQUES.
[2019-06-05] MEDS ORDERED: Sterile Water Irrig 1000ml IRRIG ONE (12:02)
[2019-06-05] MEDS ORDERED: D5NS 1000ml IV ONE (12:02)
[2019-06-05] MEDS ORDERED: NS Irrig 1000ml ONE (12:02)
--- NOTE | 2019-06-05 12:30 | NUR ---
NURSE NOTES: patient tried to go outside by herself for smoking without nursing staff. screamed and yelled at the staff and left unit taking elevator. RN followed the patient and waited for smoking. the patient said she would promise not leaving without nursing staff.
--- NOTE | 2019-06-05 12:50 | NUR ---
NURSE NOTES: Patient back to her room assisted by RN. patient sitting in W/C. patient asked to wrap her right ankle with bandage for comfort. RN informed the patient call nursing staff for smoking outside, don't leave alone without nursing staff. the patient verbally understood and said she would not leave unit herself. patient in the room.
--- NOTE | 2019-06-05 14:00 | NUR ---
P.T NOTE: late entry 0867 P.T evaluation attempted. Pt however declined to participate stating she's not feeling well due to pain and lack of sleep. Pt requested to be seen this PM. Will follow up this PM. RN notified aware.
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
--- NOTE | 2019-06-05 14:24 | NUR ---
NURSE NOTES: Patient off unit for smoking without nursing staff. Charge nurse Meagan followed the patient. patient not come back to the unit at this time.
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
--- NOTE | 2019-06-05 15:20 | NUR ---
NURSE NOTES: patient came back to unit at 1520. RN informed and educated patient it is against medical advise leaving without permission. patient verbally understood. RN put new IV on left hand 20g. started infusing Zosyn as ordered. patient in bed. alert. oriented. no respiratory distress noted. pain on right leg. bed in the lowest position and locked. call light within reach. will continue to provide plan of care.
--- NOTE | 2019-06-05 15:32 | NUR ---
CHARGE NURSE NOTE: Pt came back to the hospital Police notified, service cancelled. Pt non-compliant, does not want to follow the hospital rules, going downstairs to smoke whenever she wants, screaming, cursing. notified. Nursing Tea had a conversation with patient.
[2019-06-05 16:00] VITALS: BP 102/56
--- NOTE | 2019-06-05 19:25 | NUR ---
HAND-OFF: Report given to JOANA Duran&JOANA Rachel.
--- NOTE | 2019-06-05 19:40 | NUR ---
NURSE NOTES: Pt is in bed, asleep. No acute distress noted. IV site on left hand asymptomatic. Surgery site on the right hip is dry and clean. Fall precaution on place. Bed locked low in position,side rails up and call light within reach. Pt will be monitored.
--- NOTE | 2019-06-05 19:55 | NUR ---
NURSE NOTES: Pt is calling to report pain in her right hip, 10mg of [place] given as ordered for pain.
[2019-06-05 20:00] VITALS: BP 105/59
--- NOTE | 2019-06-05 20:00 | NUR ---
NURSE NOTES: Pt is demanding to go outside to smoke a cigarette. Pt advised and instructed against smoking and going outside. However, patient insisted and pushed her way to the wheelchair. GREY Funes was sent downstairs to accompany the patient.
--- NOTE | 2019-06-05 20:10 | NUR ---
NURSE NOTES: Pt is back in the unit.
--- NOTE | 2019-06-05 22:00 | NUR ---
NURSE NOTES: Pt is out to smoke cigarettes again despite instructions not to smoke. Pt is accompanied downstairs by GREY Funes per patient's insistence.
--- NOTE | 2019-06-05 22:20 | NUR ---
NURSE NOTES: Pt is back to the unit. Pt wont allow us to insert IV access. Pt refuses to have Zosyn IV and IV maintenance fluid. Pt is resistive to care and noncompliant. Pt only takes pain medication.
--- NOTE | 2019-06-05 22:56 | NUR ---
NURSE NOTES: Pt is out of unit, hanging out with the security personnel. Pt refuses to come back up for medication administration. Charge nurse Ema and GREY Funes also aware..
[2019-06-06] VITALS: BP 111/57
--- NOTE | 2019-06-06 | NUR ---
NURSE NOTES: Pt is back in the unit, wheeling the wheelchair around.
--- NOTE | 2019-06-06 00:50 | NUR ---
NURSE NOTES: Pt went to security desk in the lobby again despite instructions to remain in bed.
--- NOTE | 2019-06-06 00:55 | NUR ---
NURSE NOTES: Pt is back in the unit.
[2019-06-06] MEDS: Piperacillin/Tazobactam 3.375 GM in NS 110 ML IVPB SCH ×4 (01:57→21:57)
[2019-06-06] MEDS: D5 1/2NS w/KCl 20mEq 1,000 ML IV SCH ×3 (01:58→21:59)
--- NOTE | 2019-06-06 02:06 | NUR ---
NURSE NOTES: Pt is in bed now. Pt finally allowed to have IV inserted; left hand 24G. IV fluid resumed. Pt Zosyn antibiotic IV started. Pt refused Remeron, pt refuses any medication that will help her sleep. Pt will be monitored.
[2019-06-06 04:00] VITALS: BP 124/63
--- NOTE | 2019-06-06 06:53 | NUR ---
NURSE NOTES: Pt. refused AM blood draw despite patient education. Treatment Coordinator will return and attempt blood draw at a later time.
--- NOTE | 2019-06-06 07:09 | NUR ---
HAND-OFF: Report given to Padmini Fontaine RN.
--- NOTE | 2019-06-06 07:18 | NUR ---
NURSE NOTES: received report from RogerRN& WilsonRN. patient in bed, sleeping. no respiratory distress noted. IV on LH 24g. intact. bed in the lowest position and locked. call light within reach. will continue to provide plan of care.
[2019-06-06 08:00] VITALS: BP 107/65
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
[2019-06-06] MEDS: oxyCONTIN 10mg tab ORAL SCH ×2 (08:24→21:53)
[2019-06-06] MEDS: celeBREX 200mg Cap **SURGERY PATIENTS ONLY ORAL SCH ×2 (08:24→08:54)
[2019-06-06] MEDS: Docusate 100mg cap ORAL SCH ×3 (08:25→18:00)
[2019-06-06] MEDS: Heparin 5000 units/ml inj SUBQ SCH ×3 (08:26→21:54)
--- NOTE | 2019-06-06 08:46 | General Progress Note ---
Assessment/Plan Problem List: (1) UTI (urinary tract infection) ICD Codes: N39.0 - Urinary tract infection, site not specified SNOMED: 70746380 (2) Hip fracture, right ICD Codes: S72.001A - Fracture of unspecified part of neck of right femur, initial encounter for closed fracture SNOMED: 936379258 Status: stable Assessment/Plan: cont abx pain rx stable s/p hip surgery pt/ot dc planning ?snf Subjective ROS Limited/Unobtainable: No Constitutional: Reports: malaise, weakness HEENT: Reports: no symptoms Cardiovascular: Reports: no symptoms Respiratory: Reports: no symptoms Gastrointestinal/Abdominal: Reports: no symptoms Genitourinary: Reports: no symptoms Neurologic/Psychiatric: Reports: no symptoms Endocrine: Reports: no symptoms Hematologic/Lymphatic: Reports: no symptoms Allergies: Coded Allergies: No Known Allergies (Unverified , 06/01/19) All Systems: reviewed and negative except above Subjective s/p right hip orif c/o pain leaving to go down to smoke Objective Last 24 Hour Vital Signs Date Time Temp Pulse Resp B/P (MAP) Pulse Ox O2 Delivery O2 Flow Rate FiO2 06/06/19 04:00 98.1 94 17 124/63 (83) 97 06/06/19 00:00 98.1 95 17 111/57 (75) 98 06/05/19 21:00 Room Air 06/05/19 20:00 98.2 91 18 105/59 (74) 99 06/05/19 16:00 96.8 89 17 102/56 (71) 99 06/05/19 09:00 Room Air Intake and Output 06/05/19 06/06/19 19:00 07:00 Intake Total 665.0 ml 665.0 ml Balance 665.0 ml 665.0 ml Intake Oral 480 ml 480 ml IV Total 185.0 ml 185.0 ml # Voids 3 2 Height (Feet): 5 Height (Inches): 1.00 Weight (Pounds): 125 Asa Juarez MD Jun 06, 2019 08:46
--- NOTE | 2019-06-06 10:26 | NUR ---
P.T Note: Attempted to see pt for P.T evaluation and tx. Pt however declined upon P.T attempt and requested for P.T to come come in an hour 1130. P.T will follow reattempt.
--- NOTE | 2019-06-06 10:42 | NUR ---
NURSE NOTES: Patent refused physical therapy. Risks versus benefit explained. Patient stated she would attemp therapy in an hour.
--- NOTE | 2019-06-06 11:10 | NUR ---
CASE MANAGEMENT:REVIEW 06/05/19 SI: POD #1 S/P RT HIP ORIF 96.8 89 17 102/56 99% ON RA IS: IVF@75/HR IV ZOSYN Q8HRS REMERON PO QHS CELEBREX PO QD PROTONIX PO QD OXYCONTIN PO Q12 ASA PO QD ATIVAN PO Q6HRS PRN HEPARIN SQ Q12 : MED.SURG STATUS 4 [facility] 06/06/19 SI: POD #2 S/P RT HIP ORIF 99.4 99 19 107/65 97% ON RA IS: IVF@75/HR IV ZOSYN Q8HRS REMERON PO QHS CELEBREX PO QD PROTONIX PO QD OXYCONTIN PO Q12 ASA PO QD ATIVAN PO Q6HRS PRN HEPARIN SQ Q12 : MED.SURG STATUS 4 [facility] PLAN: PATIENT IS REFUSING PHYSICAL THERAPY AND REFUSING TO ALLOW NURSES TO CONTACT HER FAMILY
--- NOTE | 2019-06-06 11:45 | NUR ---
NURSE NOTES: patient tried to go down stair for smoking without asking nursing staff. RN informed and educated the patient leaving unit without permission is against medical order, needs to ask nursing staff to assist her. Nursing staff assisted her to go down stair for smoking and the patient came back at this time.
[2019-06-06 12:00] VITALS: BP 98/54
--- NOTE | 2019-06-06 12:11 | Diagnostic Imaging Report ---
Indication: Pain Technique: XRAY Ankle Compl Min 3v R Comparison: None Findings: Bone mineralization within normal limits. No acute fracture identified. Ankle mortise intact on these nonstress views. Imaged portions of the hindfoot unremarkable. No ankle joint effusion. No radiopaque foreign body. Impression: No acute fracture or dislocation.
--- NOTE | 2019-06-06 13:30 | NUR ---
NURSE NOTES: Dressing change ORIF on rt hip done by RN. no s/sx of infection. sterile strips intact. no bleeding. no drainage noted. put 4x4 sterile gauze and tergaderm as ordered.
[2019-06-06] MEDS ORDERED: NORCO 10-325 T1 EACH ORAL (14:59)
[2019-06-06] MEDS ORDERED: ASPIRIN325 MG ORAL (15:00)
--- NOTE | 2019-06-06 15:04 | NUR ---
NURSE NOTES: Patient's sister Tasha was contacted via telephone and stated that she would be home at 2000 hours. Will endorse to next shift, light industrial supervisor Destiney made aware.
--- NOTE | 2019-06-06 15:22 | NUR ---
NURSE NOTES: RN notified DR. Mccullough office regarding f/u appt. received order f/u appt with DR. Mccullough 10days after surgery. patient can discharge with FWW. order noted and carried out.
[2019-06-06] MEDS: HYDROcodone/Acetamin 5/325 tab ORAL PRN (15:58)
--- NOTE | 2019-06-06 15:58 | NUR ---
P.T Note: late entry 1100 P.T evaluation completed and tx initiated. Please refer to P.T evaluation for current functional status. Pt. is limited by increased pain on the R hip aggravated by movement initiated 5-03/05 ( premedicated ) and feeling fatigued due to lack of sleep. Pt currently require require SBA and extended to initiate and complete bed mobility , transfers and gait/ambulation activities using the crutches. Skilled P.T service is warranted to increase functional mobility independence and safety during stay. Recommend crutches and bedside commode at [facility]. Pt will also eventually benefit from outpatient P.T for further rehab intervention at [facility]. Thank you for this referral. Pt is cleared for OOB activities with nursing supervision.
[2019-06-06 16:00] VITALS: BP 98/60
--- NOTE | 2019-06-06 16:30 | NUR ---
NURSE NOTES: patient tried to leave unit for smoking without nursing staff. RN assisted the patient to outside. informed the patient leaving hospital without assist is against medical advice. patient verbalized understood. patient back to the room with RN assist after smoking.
[2019-06-06 17:27] LABS: BASOPHILS % (AUTO) 1.9 % (0.0-2.0); EOSINOPHILS % (AUTO) 11.3 % (0.0-3.0); HEMATOCRIT 28.8 % (37.0-47.0); LYMPHOCYTES % (AUTO) 31.2 % (20.0-45.0); MEAN CORPUSCULAR VOLUME 84 FL (80-99); MONOCYTES % (AUTO) 8.6 % (1.0-10.0); NEUTROPHILS % (AUTO) 46.9 % (45.0-75.0); PLATELET COUNT 338 K/UL (150-450); RED BLOOD COUNT 3.42 M/UL (4.20-5.40); RED CELL DISTRIBUTION WIDTH 11.6 % (11.6-14.8); WHITE BLOOD COUNT 7.5 K/UL (4.8-10.8)
--- NOTE | 2019-06-06 17:50 | NUR ---
NURSE NOTES: patient tried to take elevator going outside for smoking without nursing staff. RN assisted the patient outside. RN informed the patient leaving unit without assistance is again Addendum: 06/06/19 at 1824 by SHELLI SOSA RN cont. against medical advice. patient verbalized understood. patient is non compliant for nursing procedures. RN assisted the patient back to room after smoking.
--- NOTE | 2019-06-06 19:00 | NUR ---
NURSE NOTES: Received pt sleeping in bed. No respiratory distress noted. IV intact. Waiting sister for discharge. Bed in the lowest position and locked, side rails up, call light within reach. Will continue to provide plan of care.
--- NOTE | 2019-06-06 19:09 | NUR ---
HAND-OFF: Report given to JOANA Veliz.
[2019-06-06 20:00] VITALS: BP 94/56
--- NOTE | 2019-06-06 20:28 | NUR ---
NURSE NOTES: Pt is crying, refused discharge, and said I cannot get up and walk with walker. RN notified Dr. Juarez. Patient tried to take elevator going outside for smoking without nursing staff. RN assisted the patient outside. RN informed the patient leaving unit without assistance is AMA. Pt verbalized understood and said I will come back.
--- NOTE | 2019-06-06 21:00 | NUR ---
NURSE NOTES: Pt came back from outside for smoking.
--- NOTE | 2019-06-07 02:10 | NUR ---
NURSE NOTES: Patient tried to take elevator going outside for smoking without nursing staff. RN assisted the patient outside. RN informed the patient leaving unit without assistance is AMA. Pt verbalized understood and said I will come back.
--- NOTE | 2019-06-07 02:25 | NUR ---
NURSE NOTES: Pt came back from outside.
[2019-06-07] MEDS: HYDROcodone/Acetamin 5/325 tab ORAL PRN (02:32)
[2019-06-07] MEDS: Piperacillin/Tazobactam 3.375 GM in NS 110 ML IVPB SCH (06:00)
--- NOTE | 2019-06-07 06:58 | General Progress Note ---
Assessment/Plan Problem List: (1) UTI (urinary tract infection) ICD Codes: N39.0 - Urinary tract infection, site not specified SNOMED: 63647209 (2) Hip fracture, right ICD Codes: S72.001A - Fracture of unspecified part of neck of right femur, initial encounter for closed fracture SNOMED: 153775916 Status: stable Assessment/Plan: cont abx pain rx stable s/p hip surgery pt/ot dc planning ?snf Subjective ROS Limited/Unobtainable: No Constitutional: Reports: malaise, weakness HEENT: Reports: no symptoms Cardiovascular: Reports: no symptoms Respiratory: Reports: no symptoms Gastrointestinal/Abdominal: Reports: no symptoms Genitourinary: Reports: no symptoms Neurologic/Psychiatric: Reports: no symptoms Endocrine: Reports: no symptoms Hematologic/Lymphatic: Reports: no symptoms Allergies: Coded Allergies: No Known Allergies (Unverified , 06/01/19) All Systems: reviewed and negative except above Subjective c/o pain. per pt cant manage at home. Unclear if therapy as "cleared" the pt to go home. prefer snf Objective Last 24 Hour Vital Signs Date Time Temp Pulse Resp B/P (MAP) Pulse Ox O2 Delivery O2 Flow Rate FiO2 06/06/19 21:00 Room Air 06/06/19 20:00 99.0 91 18 94/56 (69) 99 06/06/19 16:00 99.6 95 19 98/60 (73) 98 06/06/19 12:00 97.1 69 18 98/54 (69) 9 06/06/19 09:00 Room Air 06/06/19 08:00 99.4 99 19 107/65 (79) 97 Intake and Output 06/06/19 06/07/19 19:00 07:00 Intake Total 700.0 ml Balance 700.0 ml Intake Oral 480 ml IV Total 220.0 ml # Voids 2 3 Laboratory Tests 06/06/19 17:05: White Blood Count 7.5, Red Blood Count 3.42L, Hemoglobin 10.0L, Hematocrit 28.8L , Mean Corpuscular Volume 84, Mean Corpuscular Hemoglobin 29.3, Mean Corpuscular Hemoglobin Concent 34.8, Red Cell Distribution Width 11.6, Platelet Count 338, Mean Platelet Volume 5.9L, Neutrophils (%) (Auto) 46.9, Lymphocytes ( %) (Auto) 31.2, Monocytes (%) (Auto) 8.6, Eosinophils (%) (Auto) 11.3H, Basophils (%) (Auto) 1.9 Height (Feet): 5 Height (Inches): 1.00 Weight (Pounds): 125 General Appearance: WD/WN, alert Asa Juarez MD Jun 07, 2019 06:58
--- NOTE | 2019-06-07 07:30 | NUR ---
NURSE NOTES: Received pt is sleeping in the bed. pt is in RA, no SOB or acute respiratory distress noted. pt has intact iv access RFA 22g. all needs attended, bed is locked and is in the lowest position, call light within easy reach. will continue to monitor.
[2019-06-07 07:41] LABS: BASOPHILS % (AUTO) 1.4 % (0.0-2.0); EOSINOPHILS % (AUTO) 12.5 % (0.0-3.0); HEMATOCRIT 26.4 % (37.0-47.0); HEMOGLOBIN 8.7 G/DL (12.0-16.0); MEAN CORPUSCULAR VOLUME 87 FL (80-99); MONOCYTES % (AUTO) 9.8 % (1.0-10.0); NEUTROPHILS % (AUTO) 45.2 % (45.0-75.0); PLATELET COUNT 315 K/UL (150-450); RED BLOOD COUNT 3.04 M/UL (4.20-5.40); RED CELL DISTRIBUTION WIDTH 12.9 % (11.6-14.8)
--- NOTE | 2019-06-07 07:49 | NUR ---
HAND-OFF: Report given to JOANA Santos.
[2019-06-07 08:00] VITALS: BP 101/41
[2019-06-07] MEDS: Heparin 5000 units/ml inj SUBQ SCH (09:00)
[2019-06-07] MEDS: Docusate 100mg cap ORAL SCH (09:03)
[2019-06-07] MEDS: oxyCONTIN 10mg tab ORAL SCH (09:04)
--- NOTE | 2019-06-07 10:50 | NUR ---
NURSE NOTES: pt has active D/C order, RN done all D/C assessments, pt is stable, V/S stable, but pt refused to go home and tried to go to street to smoke with hospital gown on and wheelchair, ANAHI MENESES and JOAQUIN TORRES notified and RN with JOAQUIN followed pt to street to persuade her to go back to her room to dress up and D/C iv access but she verbally abused staff and refused, after awhile, again RN and SW persuade pt and she accepted to go back to her room to dress up and D/C iv access and RN provided pt with appropriate clothes and pt put them on, pt accepted all instructions and prescription but she refused to sign paper work. pt refused to remove wrist band, all belongings are with pt and checked with RN, but pt refused to sign belongings list, pt refused to take her walker but she took her crutches. pt refused hospital to provide for her transportation and she stated she would arrange transportation by her self, RN called next of kin ROCHELLE and left massage and called sister JULIETTE and she is aware about discharging. Pt accompanied to the out of hospital with JOANA THACKER, JOANA COMER, GREY HIGGINS.
--- NOTE | 2019-06-09 14:57 | Discharge Summary ---
Discharge Summary Discharge Summary _ DATE OF ADMISSION: 06/02/2019 DATE OF DISCHARGE: 06/07/2019 DISCHARGED BY: Dr. Asa Juarez CONSULTANTS: Dr. Isidro Bland BRIEF HOSPITAL COURSE: Patient is a 34-year-old female with no past medical history. She injured her right hip approximately a month and a half ago while playing basketball. She states that she has been unable to ambulate. She was admitted the day prior but eloped. She presented presented back to the ED. CAT scan of the hip showed fracture of the right hip. Urinalysis showed 20-30 urine WBC. She was then admitted for further evaluation and care. Orthopedic was consulted. Imaging reviewed. Patient has right basicervical impacted valgus femoral neck fracture with displacement. At least 4 to 5 days old and possibly longer. Very high risk for AVN of the right femoral. Psychiatric evaluation was done. She was diagnosed with anxiety disorder. She was reluctant to start SSRI. She was given Ativan as needed. She was encouraged not to smoke and was recommended nicotine patch, patient refused. Patient was medically optimized prior to surgery. She was given IV antibiotics for UTI. On 06/04/2019, she underwent right hip open reduction and external fixation of right femoral neck fracture. She tolerated procedure well. Postoperatively, she was given pain management. She was given PT and OT. Urine culture showed growth of mixed gram-positive organisms. Patient was noncompliant with weightbearing instructions and guidelines. Patient eloped again but was brought back by police. Patient is refusing physical therapy and refusing to allow nurses to contact her family. Patient was discharged home. FINAL DIAGNOSES: Right femoral neck fracture, status post ORIF UTI DISPOSITION: Patient was discharged home. DISCHARGE MEDICATIONS: Refer to Discharge Medication List. DISCHARGE INSTRUCTIONS: Follow-up in a week. I have been assigned to complete a discharge summary on this account, I was not involved with the patient's management.--SARAHY Arroyo Jacqueline Robles NP Jun 09, 2019 14:57
== END 2019-06-07 10:50 | disposition home or self-care (01) | DRG 481 ==
LOC: EMR 11:28 → 4E 11:57 → EDBEDREQ 12:52
PROC: 0QS604Z Reposition Right Upper Femur with Internal Fixation Device, Open Approach (ICD-10-PCS; principal; 2019-06-04 12:00)
DX: S72.091A Other fracture of head and neck of right femur, initial encounter for closed fracture (principal); N39.0 Urinary tract infection, site not specified; X58.XXXA Exposure to other specified factors, initial encounter; Y93.67 Activity, basketball; Y92.310 Basketball court as the place of occurrence of the external cause; F17.200 Nicotine dependence, unspecified, uncomplicated; F41.9 Anxiety disorder, unspecified; F12.20 Cannabis dependence, uncomplicated
CPT/HCPCS: 36415; 72170; 76000; 80048; 85025; 87086; 94003; 94150; 96374; 99285; J2250; J2405

== ENCOUNTER 2019-06-10 17:41 | Emergency (ER) | payer SELFPAY ==
[~2019-06-10] VITALS: Ht 154.9 cm; Wt 57.6 kg
[~2019-06-10 17:41] MED LIST changes: +ASPIRIN325 MG ORAL; +NORCO 10-325 T1 EACH ORAL
[2019-06-10 17:45] VITALS: BP 110/76
[2019-06-10] MEDS ORDERED: HYDROcodone/Acetamin 5/325 tab ORAL ONE (18:00)
[2019-06-10] MEDS ORDERED: Ketorolac 30mg Inj ONE (18:14)
[2019-06-10] MEDS ORDERED: Ketorolac 60mg Inj IM ONE (18:15)
--- NOTE | 2019-06-10 18:18 | Emergency Room Report ---
History of Present Illness General Chief Complaint: Pain Source: Patient Present Illness HPI Patient presents with reports of right hip pain Patient on review had initial presentation to the hospital in the beginning of May patient had Eloped Again returned had Past medical history regarding previous injury and a reinjury imaging study here has shown a right-sided hip fracture and patient did have surgery Patient had elopement and also left AGAINST MEDICAL ADVICE At this time reports that she was at [facility] this morning Was getting set for repeat surgery of the right hip She displays a sign with the word ' yes' to indicate the correct side in the OR And reports that after this was initiated she was told to present back to this hospital for further care with the initial surgeon Patient appears calm at times and at times complains of pain denies any repeat falls since the discharge from the hospital Denies any fevers or chills denies any swelling has been somewhat noncompliant with her crutches and bearing weight more than she should be Allergies: Coded Allergies: CLINDAMYCIN (Verified Allergy, Unknown, 06/10/19) Patient History Past Medical History: see triage record Last Menstrual Period: unk Now: No : 3 Para: 1 Reviewed Nursing Documentation: PMH: Agreed; PSxH: Agreed Nursing Documentation-PMH Past Medical History: No History, Except For Hx Cardiac Problems: No Hx Cancer: No Hx Gastrointestinal Problems: No Hx Neurological Problems: No Review of Systems All Other Systems: negative except mentioned in HPI Physical Exam Vital Signs Date Time Temp Pulse Resp B/P (MAP) Pulse Ox O2 Delivery O2 Flow Rate FiO2 06/10/19 17:45 98.8 107 20 110/76 (87) 97 Room Air Sp02 EP Interpretation: reviewed, normal General Appearance: no apparent distress - Initially but at times becomes somewhat histrionic and tearful Head: normocephalic, atraumatic Eyes: bilateral eye EOMI ENT: EOM grossly intact, normal pharynx Neck: supple, no meningismus Respiratory: lungs clear, no respiratory distress, no retraction Cardiovascular #1: regular rate, rhythm Gastrointestinal: non tender Musculoskeletal: other - Right-sided surgical site healing well no obvious erythema no fluctuance sensory is intact distally on the right lower extremity Neurologic: alert Psychiatric: anxious Skin: no rash Lymphatic: no adenopathy Medical Decision Making Diagnostic Impression: Primary Impression: Hip pain ER Course Given the patient's history and exam multiple differentials are in consideration , including but not limited to reinjury of the surgical site Infectious process, joint effusion Patient's imaging study does not change from previous comparison the x-rays also shared with the patient's Orthopedic surgeon who feels the same Patient remains afebrile And at this time requires close outpatient follow-up Other X-Ray Diagnostic Results Other X-Ray Diagnostic Results : X-Ray ordered: Right hip # of Views/Limited Vs Complete: 3 View Indication: Pain EP Interpretation: Yes Interpretation: no dislocation, no soft tissue swelling, no fractures, other - Similar comparison to previous Impression: No acute disease Electronically Signed by: Dev Perez DO Last Vital Signs Date Time Temp Pulse Resp B/P (MAP) Pulse Ox O2 Delivery O2 Flow Rate FiO2 06/10/19 17:45 98.8 107 20 110/76 (87) 97 Room Air Status: improved Disposition: HOME, SELF-CARE Condition: Improved Additional Instructions: Patient is provided with the discharge instructions notified to follow up with primary doctor in the next 2-3 days otherwise return to the er with any worsening symptoms. Please note that this report is being documented using [email or web address] technology. This can lead to erroneous entry secondary to incorrect interpretation by the dictating instrument. Dev Perez DO Jun 10, 2019 18:18
[2019-06-10 19:20] VITALS: BP 112/77
--- NOTE | 2019-06-11 14:51 | Diagnostic Imaging Report ---
Indication: Right hip pain, trauma Technique: 2 views of the right hip Comparison: 06/04/2019 Findings: Again demonstrated is right hip hardware reducing right femoral neck fracture. Hardware remains intact. Bony fragments remain well aligned. There is diminished postsurgical soft tissue air. No acute fractures. No dislocations. Impression: Postsurgical changes, as described No definite acute bony trauma
== END 2019-06-10 19:15 | disposition home or self-care (01) ==
LOC: EDBD 17:41 → EMR 19:14
DX: M25.551 Pain in right hip (principal); Z88.8 Allergy status to other drugs, medicaments and biological substances
CPT/HCPCS: 96372; 99283

== ENCOUNTER 2020-04-29 20:35 | Emergency (ER) | payer MEDICAID, OTHER ==
[~2020-04-29] VITALS: Ht 154.9 cm; Wt 59.0 kg
[2020-04-29 20:45] VITALS: BP 118/82
[2020-04-29] MEDS ORDERED: Azithromycin 250mg tab ORAL ONE (21:15)
[2020-04-29] MEDS ORDERED: Lidocaine 1% MPF 10mg/ml 5ml INJ ONE (21:15)
[2020-04-29 21:32] LABS: APPEARANCE,URINE CLOUDY; BILIRUBIN, URINE NEGATIVE (NEGATIVE); GLUCOSE, URINE (UA) NEGATIVE (NEGATIVE); KETONES,URINE 1+ (NEGATIVE); LEUKOCYTE ESTERASE ,URINE 2+ (NEGATIVE); NITRITE,URINE POSITIVE (NEGATIVE); PH,URINE 6.5 (4.5-8.0); PROTEIN,URINE 1+ (NEGATIVE); UROBILINOGEN,URINE NORMAL MG/DL (0.0-1.0)
[2020-04-29 21:34] LABS: COLOR,URINE YELLOW
--- NOTE | 2020-04-29 21:45 | Emergency Room Report ---
History of Present Illness General Chief Complaint: Female Urogenital Problems Present Illness HPI Disclaimer: Please note that this report is being documented using [employer]. This can lead to erroneous entry secondary to incorrect interpretation by the dictating instrument. HPI: 35-year-old female with a history of a right hip fracture requiring surgical repair 1 year ago presents with multiple complaints. She states she has had vaginal discharge with dysuria and urinary frequency for the past weeks. Associated with some lower abdominal cramping. No vaginal bleeding. Last menstrual cycle was about a month ago. She denies any fevers nausea or vomiting. She states she had a right hip fracture repaired 1 year ago, and had a recent fall did not strike her hip but has had some burning pain in her right leg for the past 2 days. He was ambulatory on arrival. [place] any other injuries. She reports unprotected sex approximately 1 month ago.. Allergies: Coded Allergies: CLINDAMYCIN (Verified Allergy, Unknown, 06/10/19) COVID-19 Screening Contact w/high risk pt: No Experienced COVID-19 symptoms?: No COVID-19 Testing performed MACHINE II CUTTER: No Patient History Last Menstrual Period: unk Reviewed Nursing Documentation: PMH: Agreed; PSxH: Agreed Nursing Documentation-PMH Hx Cardiac Problems: No Hx Cancer: No Hx Gastrointestinal Problems: No Hx Neurological Problems: No - RT leg surgery may 2019 Review of Systems All Other Systems: negative except mentioned in HPI Physical Exam Vital Signs Date Time Temp Pulse Resp B/P (MAP) Pulse Ox O2 Delivery O2 Flow Rate FiO2 04/29/20 20:39 98.4 86 16 121/84 (96) 98 Room Air Sp02 EP Interpretation: reviewed, normal General Appearance: well appearing, no apparent distress Head: normocephalic, atraumatic Eyes: bilateral eye PERRL, bilateral eye EOMI ENT: hearing grossly normal, moist mucus membranes Neck: full range of motion, supple Respiratory: lungs clear, normal breath sounds, no rhonchi, no respiratory distress, no retraction, no wheezing Cardiovascular #1: normal peripheral pulses, regular rate, rhythm, no murmur Gastrointestinal: non tender, soft, non-distended, no guarding Musculoskeletal: other - Right hip nontender to palpation full range of motion normal gait no deformity with bilateral 2+ pedal pulses Neurologic: alert, oriented x3, no focal defects Skin: normal color, warm/dry Medical Decision Making Diagnostic Impression: Primary Impression: UTI (urinary tract infection) Additional Impressions: Empiric treatment of STD Right hip pain ER Course Patient presents for multiple complaints. Regarding her vaginal discharge and dysuria urinalysis was consistent with UTI. was negative. Patient will be provided p.o. antibiotics. She did request STD testing which was sent and she was given empiric treatment for STD as well. She declined vaginal examination. She had no abdominal tenderness so I have a low suspicion for PID at this time. She was afebrile with stable vital signs. Regarding her right hip pain seems more of a chronic issue but acute exacerbation after recent fall. Low suspicion for fracture. I do not believe patient requires x-ray as she was ambulatory with a normal exam. She describes a burning pain in the hip which made be secondary to neuropathy. She is following up as an outpatient for this issue. She did not want any medications for this issue. Patient stable for discharge. Return precautions were given. Last Vital Signs Date Time Temp Pulse Resp B/P (MAP) Pulse Ox O2 Delivery O2 Flow Rate FiO2 04/29/20 20:45 98.4 79 16 118/82 99 Room Air Disposition: HOME, SELF-CARE Condition: Stable Referrals: [facility],REFERR[facility] (PCP) Michael Cancino M.D. Apr 29, 2020 21:45
[2020-04-29] MEDS ORDERED: NITROFURANTOIN100 M2 ORAL (21:46)
[2020-04-29] MEDS ORDERED: FLUCONAZOLE100 MG ORAL (21:55)
[2020-04-29 21:58] VITALS: BP 123/79
== END 2020-04-29 21:58 | disposition home or self-care (01) ==
LOC: EMR 21:08
DX: N39.0 Urinary tract infection, site not specified (principal); M25.551 Pain in right hip; Z20.2 Contact with and (suspected) exposure to infections with a predominantly sexual mode of transmission; Z88.1 Allergy status to other antibiotic agents
CPT/HCPCS: 81003; 81025; 87086; 87181; 87491; 87590; 96372; J0696; Q0144; Z7502; 99283